=== PATIENT | female | born 1980 | race Caucasian/White ===

== ENCOUNTER → 2017-09-01 19:16 | Outpatient (CLI) | payer OTHER, SELFPAY ==
[2017-09-06 14:33] LABS: HPV APTIMA, High Risk Negative (Negative)
== END ==
PROVIDERS: Visit Provider Obstetrics & Gynecology
DX: Z12.4 Encounter for screening for malignant neoplasm of cervix (principal)
CPT/HCPCS: 88175; G0145

== ENCOUNTER → 2019-12-24 | Outpatient (CLI) | payer OTHER, SELFPAY ==
[2019-12-02 11:15] VITALS: BMI 21.2
--- NOTE | 2019-12-24 15:16 | BI_ITS ---
MAMMOGRAPHY - BILATERAL SCREENING REASON FOR EXAM: Female, 39 years old. Routine annual screening examination. PERTINENT HISTORY: Non-contributory. TECHNIQUE: Digital bilateral breast clarence (3D mammographic acquisition) in the CC and MLO projections. 2-D mediolateral oblique (MLO) and craniocaudad (CC) views of both breasts were obtained. CAD: Full Field Digital Mammography with Computer Added Detection was performed. COMPARISON: No comparison mammograms available at this time. If any prior films become available, an addendum to this report can be generated. FINDINGS: Breast Composition: The breasts are extremely dense, which lowers the sensitivity of mammography. There are no dominant masses or suspicious calcifications. No other significant abnormalities are identified. BI/SCREEN MAMM (CAD) W/CLARENCE BILAT IMPRESSION: Negative screening mammogram. Yearly followup mammogram recommended. (A) ASSESSMENT CATEGORY: BIRADS Category 1: Negative. A letter regarding these results will be sent to the patient by the facility within 30 days. Approximately 10% of breast cancers are not detected by mammography. A normal mammogram should not delay biopsy of a clinically suspicious abnormality. [id number] Electronically Signed: Jean-Claude Graham, at 8:28 EDT , Service support ,
== END | disposition home or self-care (01) ==
LOC: OPBI 15:16
PROVIDERS: PCP Family Medicine; Referring Provider Nurse Practitioner Women's Health; Visit Provider Nurse Practitioner Women's Health
DX: Z12.31 Encounter for screening mammogram for malignant neoplasm of breast (principal)
CPT/HCPCS: 77063; 77067

== ENCOUNTER → 2020-04-14 | Outpatient (CLI) | payer OTHER, SELFPAY ==
[2020-04-14 14:58] VITALS: BMI 20.9
== END | disposition home or self-care (01) ==
LOC: LABSPEC 16:49
PROVIDERS: PCP Family Medicine; Visit Provider Nurse Practitioner Women's Health
DX: R10.2 Pelvic and perineal pain (principal)
CPT/HCPCS: 87070; 87205

== ENCOUNTER → 2020-04-24 10:55 | Outpatient (CLI) | payer OTHER, SELFPAY ==
[2020-04-14 14:58] VITALS: BMI 20.9
--- NOTE | 2020-04-24 11:00 | US_ITS ---
STUDY: ULTRASOUND OF THE FEMALE PELVIS - COMPLETE REASON FOR EXAM: Female, 39 years old. PELVIC DISCOMFORT LMP: Unknown. TECHNIQUE: Transabdominal and Transvaginal TECHNICAL QUALITY: Adequate. COMPARISON: None. FINDINGS: The uterus is anteverted and is tilted to the right side of the pelvis. The uterus measures 7.3 cm x 4.4 cm x 3.7 cm. Normal uterine cervix. The endometrium measures 2.0 mm in thickness, and is hyperechoic. There is no demonstrated endometrial mass. There is no demonstrated myometrial mass. I.U.D. - The patient does not have an I.U.D. The right ovary is visualized. The right ovary measures 2.4 cm x 2 cm x 1.6 cm. There is no right ovarian cyst or ovarian mass. There is no visualized right adnexal mass or complex lesion. There is normal arterial and normal venous vascularity. The left ovary is visualized. The left ovary measures 1.9 cm x 1.7 cm x 1.5 cm. There is no left ovarian cyst or ovarian mass. There is no visualized left adnexal mass or complex lesion. There is normal arterial and normal venous vascularity. There is no fluid in the cul-de-sac. The pre void volume of the bladder was 111.5 ml. Polycystic ovary disease: No. US/Pelvic (Non ) IMPRESSION: Normal female pelvis. Electronically Signed: Jean-Claude Graham, at 13:17 EST , Service support ,
--- NOTE | 2020-04-24 11:00 | US_ITS ---
STUDY: ULTRASOUND OF THE FEMALE PELVIS - COMPLETE REASON FOR EXAM: Female, 39 years old. PELVIC DISCOMFORT LMP: Unknown. TECHNIQUE: Transabdominal and Transvaginal TECHNICAL QUALITY: Adequate. COMPARISON: None. FINDINGS: The uterus is anteverted and is tilted to the right side of the pelvis. The uterus measures 7.3 cm x 4.4 cm x 3.7 cm. Normal uterine cervix. The endometrium measures 2.0 mm in thickness, and is hyperechoic. There is no demonstrated endometrial mass. There is no demonstrated myometrial mass. I.U.D. - The patient does not have an I.U.D. The right ovary is visualized. The right ovary measures 2.4 cm x 2 cm x 1.6 cm. There is no right ovarian cyst or ovarian mass. There is no visualized right adnexal mass or complex lesion. There is normal arterial and normal venous vascularity. The left ovary is visualized. The left ovary measures 1.9 cm x 1.7 cm x 1.5 cm. There is no left ovarian cyst or ovarian mass. There is no visualized left adnexal mass or complex lesion. There is normal arterial and normal venous vascularity. There is no fluid in the cul-de-sac. The pre void volume of the bladder was 111.5 ml. Polycystic ovary disease: No. US/Transvaginal Non- IMPRESSION: Normal female pelvis. Electronically Signed: Jean-Claude Graham, at 13:17 EST , Service support ,
== END ==
PROVIDERS: PCP Family Medicine; Referring Provider Nurse Practitioner Women's Health; Visit Provider Nurse Practitioner Women's Health
DX: N94.9 Unspecified condition associated with female genital organs and menstrual cycle (principal)
CPT/HCPCS: 76830; 76856

== ENCOUNTER → 2020-05-13 13:30 | Outpatient (CLI) | payer OTHER, SELFPAY ==
[2020-04-14 14:58] VITALS: BMI 20.9
--- NOTE | 2020-05-13 13:33 | CT_ITS ---
STUDY: CT ABDOMEN AND PELVIS WITHOUT CONTRAST REASON FOR EXAM: Female, 39 years old. BLADDER PAIN, URINE FREQUENCY RADIATION DOSAGE (If Supplied By Facility): CTDIvol = ( 5.31 ) mGy, DLP = ( 232.67 ) mGycm TECHNIQUE: Transaxial images were obtained from the dome of the diaphragm to the symphysis pubis without oral contrast, and without intravenous contrast. Sagittal and coronal images were reconstructed. Individualized dose optimization techniques were used for this CT. COMPARISON: None. FINDINGS: The visualized lung bases are unremarkable. The visualized portions of the heart are within normal limits. Normal liver. Normal gallbladder and extrahepatic biliary system. Normal spleen. Normal pancreas. Normal bilateral adrenal glands. Normal right kidney. Normal left kidney. Normal visualized stomach. Normal small intestine. Normal colon. The appendix is visualized and appears normal. Normal abdominal aorta. Normal inferior vena cava. Normal retroperitoneum. Normal urinary bladder. Normal abdominal wall. Normal osseous structures. CT/Abdomen/Pelvis without Cont IMPRESSION: Normal unenhanced CT of the abdomen and pelvis. Electronically Signed: Jean-Claude Graham MD at 14:09 EST , Service support ,
== END ==
PROVIDERS: PCP Family Medicine; Referring Provider Urology; Visit Provider Urology
DX: M54.5 Low back pain (principal); M10.30 Gout due to renal impairment, unspecified site; R35.0 Frequency of micturition; R39.15 Urgency of urination
CPT/HCPCS: 74176

== ENCOUNTER 2020-05-18 09:00 | Outpatient (RCR) | payer OTHER, SELFPAY ==
[2020-04-14 14:58] VITALS: BMI 20.9
--- NOTE | 2020-05-18 09:00 | BH.SGPN.GN ---
This psychotherapy group was provided via telehealth using two-way, real-time interactive telecommunication technology between the patients and the provider. The interactive telecommunication technology included audio and video. The patient was offered telemedicine as an option for care delivery during the COVID-19 pandemic and consented to this option. Patient location: [place] Provider located at [facility] Behaviors/Verbalizations/Mental Status: []Client alert and oriented, casually dressed. Eye contact fair. Motor activity appropriate. Speech within normal limits. Affect flat, mood anxious. Thoughts linear, logical, no signs of hallucinations or delusions. Reviewed client?s symptom tracker, no risk or plan for suicide ideation as of 05/18/20. Client Response/Progress/Benefit: []Client responded well to session, engaged throughout and participated in group discussion. Client reported feeling ?anxious? as it was her first day of IOP program. Client stated her reasoning for joining group was due to feeling anxious of COVID 19 and feeling stressed due missing human interaction. Client stated her goal for IOP is to decrease her anxiety. Benefited and progress made as client was vulnerable and opened up to group for first day of treatment. Will continue IOP to prevent decompensation, decrease anxiety, and learn healthy coping skills. Narrative Note: []
--- NOTE | 2020-05-18 09:00 | BH.COMM ---
Communication Note - Communication with Client Communication Note: Intial paperwork completed via Zoom on . Completed [facility] with low risk.
--- NOTE | 2020-05-18 10:12 | BH.SGPN.GN ---
This psychotherapy group was provided via telehealth using two-way, real-time interactive telecommunication technology between the patients and the provider.?The interactive telecommunication technology included audio and video.? ?The patient was offered telemedicine as an option for care delivery during the COVID-19 pandemic and consented to this option. ?Patient location: [place] ?Provider located at [facility] Behaviors/Verbalizations/Mental Status: []Client alert and oriented, casually dressed. Eye contact good. Motor activity appropriate. Speech within normal limits. Affect congruent, mood anxious. Thoughts linear, logical, no signs of hallucinations or delusions. Client Response/Progress/Benefit: []Client engaged participant AEB client taking notes and listening attentively to peers. Group discussed the quotes as well as unhealthy coping skills. Group gave examples such as: alcohol, avoidance, taking responsibility for others, and minimizing. The group stated unhealthy coping skills tend to be easy, habitual, and temporary relief. Client was quiet during discussion, but frequently nodded at peers? comments. Client participated in the group activity and connected that a healthy foundation of coping skills is composed of healthy internal and external coping skills. Client seemed to benefit from increased awareness of the importance of increasing healthy coping skills and consequences of utilizing unhealthy coping skills. Client?s first day of IOP tx. Will continue to prevent decompensation and improve daily functioning. Narrative Note: []
--- NOTE | 2020-05-18 11:15 | BH.SGPN.GN ---
This psychotherapy group was provided via telehealth using two-way, real-time interactive telecommunication technology between the patients and the provider.?The interactive telecommunication technology included audio and video.? ?The patient was offered telemedicine as an option for care delivery during the COVID-19 pandemic and consented to this option. ?Patient location: [place] ?Provider located at [facility] Behaviors/Verbalizations/Mental Status: []Client alert and oriented, casual dress, hygiene tended to. Eye contact fair. Motor activity appropriate. Speech within normal limits. Affect constricted, mood dysthymic and anxious. Thoughts linear, logical, no signs of hallucinations or delusions. Client Response/Progress/Benefit: []Client engaged participant AEB client listening attentively to others and providing input at times. Client reported she is currently relying more on external supports. Client stated she has internal healthy coping skills but struggles to use the skills when in need. Group discussed the different categories of coping skills which included distraction, emotional release, grounding, self-love, and thought challenging. Client participated in creating a coping skills ?menu? from the five categories of coping skills. Client's coping skill menu included: cooking, meditation, progressive muscle relaxation, going outside, positive affirmations, and journaling. Pt's first day in IOP. Appeared to benefit from increasing repertoire of healthy coping skills. Will continue tx to continue increase healthy coping, improve daily functioning and prevent decompensation. Narrative Note: []
--- NOTE | 2020-05-18 13:31 | BH.COMM ---
Communication Note - Communication with Client Communication Note: Met with client on 05/18/20 via Zoom to ask about any questions or concerns per client's first day of IOP program. Client asked questions about weekly schedules, telehealth, individual therapy, and psychiatry. Will meet with Dr. Fam on 05/21/20 at 11:30 AM via Zoom. Client remained future-oriented and hopeful to decrease anxiety with the help of theIOP program.
--- NOTE | 2020-05-20 12:17 | BH.PSY.EVA_ITS ---
Psychiatric Evaluation - Initial Evaluation Initial Evaluation: Chief Complaint: [] I feel panic when I wake up and I cannot function. History of Present Illness: [] Patient is a 39-year-old female with a history of anxiety and PTSD and depression who was referred by her team psychologist to the [facility] behavioral health IOP program due to worsening anxiety and depression. Patient currently lives with her and 2 dogs and 1 cat and she has been for almost 5 years. 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 She was unable to work from May 03 to May 10 due to the severity of her symptoms. She was placed on BuSpar about a month ago and she says that her anxiety improved a little on the BuSpar and her mood improved a little but she still has significant anxiety and some depression. She feels her problems started when she had a miscarriage in 2013 which she feels was caused by having hyperemesis gravidarum and bladder symptoms and issues and she feels that being hospitalized at that time caused her spontaneous miscarriage. Since that time every time she gets any's bladder symptoms she worries that she has cancer. Her grandmother of cancer when the patient was 13 years of age and she was very close to her grandmother. She says that all of these symptoms and any health symptoms make her severely anxious and worried that she has cancer. She currently has had some of the work-up for her bladder issues done but she has including a CT and ultrasound and blood work. She has not scope of her bladder scheduled for next week. She was seen in the emergency room in April for bladder discomfort and the work-up began after that. The patient's mother stayed with her when she was off work due to her inability to function well at home at that time. The patient endorses feeling anxious all day and somewhat frustrated and down. She has no motivation. She endorses feeling hopeless at times but today she says she feels somewhat hopeful that she will get help. She is not enjoying much of anything she does. She has somewhat decreased appetite and her sleep is decreased to about 5 or 6 hours a night. Her energy level is low but she says her concentration at work is okay now. She feels guilty and mad herself due to her problems with anxiety. She denies any passive thoughts of . She denies suicidal or homicidal ideation or plan for suicide. She denies hallucinations, delusions or silvia. She is anxious all day long and is constantly worried about what is wrong with me and do I have cancer. She had panic attacks in the emergency room in April but has not had one since. She endorses feeling traumatized from her miscarriage in 2013 at 16 weeks gestation. The symptoms get triggered of severe anxiety and worry and flashbacks and avoidance whenever she has any bladder or gynecological symptoms. Current Psychiatric Medications: [] Zoloft 125 mg p.o. daily (increased from 100 mg yesterday; on Zoloft for 5 years total); BuSpar 5 mg p.o. 3 times daily (x1 month); Vistaril but she says it stopped helping her sleep so she stopped it. Past Psychiatric History: [] No psychiatric admissions. No suicide attempts ever. She currently has a counselor she sees about once every week or 2 and is seen her for 7 months and this has been helpful. Her first counseling was at age 16 for depression and it was not very helpful. Her first psych medication she took at age 16 for depression. She did a psych IOP in [place] and found it to be helpful in the past. Her past medications include Celexa, Zoloft and Wellbutrin. Celexa and Zoloft were helpful but Wellbutrin did not help her. Substance Use History: [] Non-smoker. No marijuana and no drug use. No alcohol use. No caffeine use. No rehab ever. Allergies: [] Codeine Medications: [] Protonix and psych meds as dictated above. Also on oral contraceptive pills. Past Medical History: [] She has a history of GERD, endometriosis, ovarian cysts and hyperemesis gravidarum in her first . She is a 1 para 0 AB 1 with a history of 1 spontaneous miscarriage around 14 weeks gestation. She has a history of bladder discomfort which is being worked up currently. Family Psychiatric History: [] Mother is 69 years old and healthy. Father is 74 years old and has a history of prostate cancer. Her mother, father and brother all have depression and anxiety. No completed suicides in the family. Mother and father are both alcoholics. Personal/Social History: [] She was born and raised in [place] and describes her childhood as very happy. Her parents were loving and there was no physical, verbal or sexual abuse. She has 1 brother 2 years older than her and she is close to her brother. She did well in school until high school and then she went to boarding school for high school and her grades were not good as she was socializing. 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 She at age 34 and has been over 4 years. She describes her marriage as good. She feels her is a little stressed because he does not help her. 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 Since the first marriage for both of them and there is no abuse in the marriage. Legal History: [] None. No DUIs. 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 Review of Systems: [] Bladder discomfort which is currently being worked up. Otherwise as noted in present illness. Vital Signs: [] Will be reviewed in nurses notes. Mental Status Examination: [] The patient is seen by telehealth and appears normal for stated age and casually dressed and groomed with good hygiene. She is cooperative during the interview and has no psychomotor agitation or retardation. Eye contact is good and speech is normal. Affect is constricted. Thought process is goal-directed and organized. Thought content: No evidence of passive thoughts of , suicidal ideation, homicidal ideation, hallucinations or delusions. There is evidence of worry that she has cancer due to her current bladder discomfort. Reality testing is intact. Judgment is intact. Insight is fair to good. Impulsivity is low. Diagnoses: [] Billingsley I: [] Illness anxiety disorder, care seeking type (F 45.21); major depressive disorder, recurrent, moderate; generalized anxiety disorder; PTSD Billingsley II: [] Deferred Billingsley III: [] Bladder discomfort Billingsley IV: [] Primary support, health and work issues Plan: [] Patient will start the IOP program in behavioral health at [facility] as the structure, support, education, individual and group therapy will hopefully prevent worsening of the patient's symptoms. The risk, options, possible side effects and complications of the medications were discussed with the patient and she understands and accepts these. She felt safe during the interview and if it anytime she does not feel safe she will let us know or go to the emergency room. No medication changes were made today as the Zoloft was increased yesterday. At some point in the future the BuSpar could be increased since that it is at a relatively low dose and the patient feels it did help her. The patient will continue to follow-up with her outpatient psychiatric and medical providers. She will see her team psychologist in 2 weeks and I will see the patient in 3 weeks for follow-up.
--- NOTE | 2020-05-20 12:30 | BH.DR.ITP ---
Initial Treatment Plan - Patient Information Visit Information: ADMISSION DATE: EXPECTED LOS: 4-6 weeks - Problems/Symptoms Problem #1:: Anxiety Symptom:: Worry, rumination, panic attack, avoidance, reexperiencing Problem #2:: Depression Symptom:: Sadness, hopelessness at times, anhedonia, lack of motivation, biological disruption of sleep.
--- NOTE | 2020-05-22 09:05 | BH.SGPN.GN ---
Behaviors/Verbalizations/Mental Status: [] Eye contact is good. Motor activity is appropriate. Appearance is neat. Speech is Appropriate. Mood is anxious. Affect is congruent. Thoughts are linear and logical. No evidence of psychosis. Reviewed daily check in sheet and no suicidal thoughts. Client Response/Progress/Benefit: [] Pt was an active participant in group discussion. Emotions for today is hopeful. Pt states I felt like myself again yesterday. Reports decreased anxiety and increased focus. Utilizing journaling which was helpful. Overall reports good evening yesterday. Check-in was brief however positive. Progress noted per pt report. Benefited from group support and encouragement. Will continue in IOP to prevent decompensation and improve functioning. Narrative Note: [] This psychotherapy group was provided via telehealth using two-way, real-time interactive telecommunication technology between the patients and the provider.?The interactive telecommunication technology included audio and video.? ?The patient was offered telemedicine as an option for care delivery during the COVID-19 pandemic and consented to this option. ?Patient location: [place] ?Provider located at [facility]
--- NOTE | 2020-05-22 10:15 | BH.SGPN.GN ---
Behaviors/Verbalizations/Mental Status: [] Eye contact is good. Motor activity is appropriate. Appearance is casual. Speech is Appropriate. Mood is euthymic. Affect is full. Thoughts are linear and logical. No evidence of psychosis. Client Response/Progress/Benefit: [] Pt was an active participant in group discussions and activities. Attentive. Worked with peers to define what self-care is and it's benefits to mental health. Self-care was identified as activities that we do to; maintain/enhance our well-being, reduce stress, increase communication, improve view of self, decrease burnout, and to have fun. Group discussed the obstacles to completing self-care activities and the myths surrounding them which included; self-care is selfish, I'm too busy for them, self-care is just having fun, I don't deserve to do self-care, self-care has to be planned, self-care should only be done when I have nothing else to do. Group broke into smaller groups and worked together to bust these myths. Pt benefited due to increased awareness of importance of self-care in mental health. Will continue in IOP to prevent decompensation, increase healthy coping, and improve functioning. Narrative Note: [] This psychotherapy group was provided via telehealth using two-way, real-time interactive telecommunication technology between the patients and the provider.?The interactive telecommunication technology included audio and video.? ?The patient was offered telemedicine as an option for care delivery during the COVID-19 pandemic and consented to this option. ?Patient location: [place] ?Provider located at [facility]
--- NOTE | 2020-05-22 11:15 | BH.SGPN.GN ---
This psychotherapy group was provided via telehealth using two-way, real-time interactive telecommunication technology between the patients and the provider.?The interactive telecommunication technology included audio and video.? ?The patient was offered telemedicine as an option for care delivery during the COVID-19 pandemic and consented to this option. ?Patient location: [place] ?Provider located at [facility] Behaviors/Verbalizations/Mental Status: []Client alert and oriented, neatly dressed and groomed. Eye contact good. Motor activity appropriate. Speech within normal limits. Affect congruent, mood euthymic. Thoughts linear, logical, no signs of hallucinations or delusions. Client Response/Progress/Benefit: []Client active participant AEB client providing input during discussions and listened attentively to peers. Participated in group discussion on the various areas of self-care and types of self-care activities for each area. Client completed worksheet in which client identified current self-care practices and what self-care activities client wants to start using. Client reports belief professional self-care in a current strength, but client would like to improve emotional self-care. Client states currently struggling with expressing feelings and has no hobbies. Client plans to explore hobbies she might enjoy this weekend and client was receptive to ideas from group. Client?s first week of IOP tx. Will continue IOP tx to prevent decompensation, reduce health anxiety, and improve daily functioning. Narrative Note: []
--- NOTE | 2020-05-22 13:23 | BH.COMM ---
Communication Note - Communication with Client Communication Note: Therapist introduced self as client's individual counselor in IOP. Therapist gathered client's tx goals and began building rapport. Client meets with her outpatient therapist today, so IOP therapist will see client for individual session next week.
--- NOTE | 2020-05-22 13:53 | BH.PSA ---
Source of Information - Presenting Problems/Circumstances Problems, Referral Source, Mental Status, Client: Client is a 39-year-old female with a history of TANYA and PTSD. client was referred to [facility] by her outpatient computer repair instructor due to significant anxiety which was interfering with client's daily functioning. At admission, client reported being in complete panic from the moment she wakes up. Client also reports feeling paralyzed by anxiety and fear which resulted in client not going to work for a week. Client has been unable to function at her baseline or complete daily responsibilities due to mental health decompensation. In 2013 client experienced significant complications while which traumatized client and caused medical anxiety. Client recently had bladder pain that triggered her medical anxiety and trauma. Client endorses ruminations that she has cancer, panic attacks, googling about her symptoms, and racing thoughts. Client also endorses anhedonia, isolative behaviors, hopelessness, decreased appetite, decreased sleep, and lack of motivation. Client's symptoms are currently impacted her social, occupational, and familial functioning. Psychiatric Presentation - Psych Issues & Need for Admission Psychiatric Issues:: Illness anxiety disorder, care seeking type (F 45.21); major depressive disorder, recurrent, moderate; generalized anxiety disorder; PTSD Past Psychiatric History - Treatment Hx Treatment History: Client denies any psychiatric admissions and denies any suicide attempts. Client currently sees a counselor at [facility] about once a week for the past seven months and client finds this helpful. Client reports she started counseling at age 16 for depression, but it was not helpful at that time. Client also took her first psych medications at age 16. Client did a mental health IOP in [place] in the past and found it helpful. Client?s previous medication trials included: Zoloft, Celexa, and Wellbutrin. First hospitalization:: n/a Most recent hospitalization:: n/a ECT Therapy:: No Age of first mental health symptoms: Client first experienced mental health symptoms at age 16. Describe (age, circumstance, etc) any past hospitalizations: Denies any hospitalizations. Current providers for mental health treatment (counselor, psychiatrist, case management associate, etc.): Echo Rodriguez at [place] [address] for medication management and Dionna Choudhary at [facility] for individual therapy. Development & Family of Origin - Childhood Significant Childhood Events: Client reports her childhood was very happy however, client shared she has struggled with perfectionism since she was a child. Client reports issues with performance anxiety as well since childhood. - Family Who currently lives in your home?: Client lives with her and their two dogs. Describe family composition:: Client was born and raised in [place] and describes her childhood as very happy. Client describes parents as loving and there was no physical, verbal or sexual abuse. Client has one brother who is two years older than her and she is close to her brother. Client reports being close to her parents as well. Client has been for four years and describes the relationship as good. Client was in the past and lost the baby. This was a traumatic experience for client and the couple do not have any children. - Family History Family History: Family History (Last Reviewed 04/14/20 @ 15:05 by Julisa Mantilla) Father Prostate cancer Mother Hypertension Grandmother Cancer Grandfather Diabetes CVA (cerebral vascular accident) Emphysema lung Family Hx of Psychiatric or AOD Problems: Client's mother, father and brother all have depression and anxiety. No completed suicides in the family. Mother and father are both alcoholics. Ethnicity - Culture Do you identify yourself with any particular cultural, ethnic background, or community?: No - Sexuality Sexual Orientation: Heterosexual Mental Status - Memory Recent Memory: Good Remote Memory: Good - Concentration Concentration: Fair - Eye Contact Eye Contact: Good - Speech Speech: Soft - Thought Process Thought Process: Obsessions, Ruminations Insight: Fair Judgment: Fair Behavior: Normal - Orientation Orientation: Time, Person, Place, Situation - Appearance Appearance: Appropriate - Mood Mood: Anxious - Affect Affect: Alert Suicide Assessment - Suicidal Ideation Have you ever felt like hurting yourself?: No Suicidal Intentional Rating Scale (SIRS): No suicidal thoughts (past or present) Physician Notification: If Active suicidal thoughts/Will not contract for safety is checked, contact physician and document in the Physician Notification section below. Violent Behavior/Abuse History - Homicidal Ideation Do you have any homicidal thoughts? If so, explain:: No Is there a known potential victim? If yes, who:: No - Abuse Have you ever been abused?: No - Life Events Are there any other significant life events?: Hardships Describe significant life events: Client feels her problems started when she had a miscarriage in 2013 which she feels was caused by having hyperemesis gravidarum and bladder symptoms and issues. Client feels that being hospitalized at that time caused her to have a spontaneous miscarriage. Since then every time client gets any bladder symptoms she worries that she has cancer. Client?s grandmother of cancer when the patient was 13 years of age and she was very close to her grandmother. Additionally, client reports exacerbation of anxiety and depression since COVID-19 pandemic started. - Safety Do you ever feel threatened in your home? If yes, describe:: No Adult Social History - Age 17 to Present Describe your current support system:: Client reports her , family, and friends are all supportive. Substance Use - Substance Substance Use Type: None Leisure/Social Activities - Interests What do you enjoy or might be interested in learning about?: Client enjoys nature, spending time with her dogs, TV, and she used to enjoy reading. 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 Do you have any learning disabilities?: No - Occupation List any current or past employment:: Client works doing [employer] for the [employer] in the [employer] department and has done this job for about 5 years and loves her work. Service - Service Have you ever been in the ?: No Legal History - Records Have you had any past legal charges?: No Do you have any current legal charges?: No Have you ever been incarcerated? If yes, describe:: No - Court Orders Have you had any past court orders for psychiatric treatment?: No Do you have a present court order for psychiatric treatment?: No Problem Checklist - Current Problem Areas Problem List: Nutritional/Eating pattern changes, Pain management, Depressed mood/sad, Anxiety, Traumatic stress, Inattention, Sleep problems, Pertinent health issues - history of GERD, endometriosis, ovarian cysts and hyperemesis gravidarum in her first . She is a 1 para 0 AB 1 with a history of 1 spontaneous miscarriage around 14 weeks gestation. She has a history of bladder discomfort which is being worked up currently., Additional psychosocial stressors - COVID-19 pandemic has exacerbated anxiety and depression due to isolation and lack of socialization. Discharge Planning Needs - Anticipated Follow-Up Mental Health Center (Name/Phone Number):: [phone] Private Therapist/Psychiatrist:: Echo Wurstle (medication management) and Dionna Choudhary (counselor) Community Agency Contacts: n/a Assignment Officer Name/Phone Number: n/a Cardiology Clinical Nurse Specialist's Assessment - Client's Needs What are the client's strengths?: Client is kind, intelligent, and receptive to learning how to manage her symptoms. Client is established with outpatient services at [facility] in [place] and [place] [address] in [place]. Client has support from her family and . Diagnoses - Diagnoses Diagnosis #1:: Illness anxiety disorder, care seeking type Diagnosis #2:: major depressive disorder, recurrent, moderate Diagnosis #3:: TANYA Diagnosis #4:: PTSD Interpretive Summary - Interpretive Summary Interpretive Summary: Client is a 39-year-old female with a history of TANYA and PTSD. client was referred to [facility] by her outpatient computer repair instructor due to significant anxiety which was interfering with client's daily functioning. At admission, client reported being in complete panic from the moment she wakes up. Client also reports feeling paralyzed by anxiety and fear which resulted in client not going to work for a week. Client has been unable to function at her baseline or complete daily responsibilities due to mental health decompensation. In 2013 client experienced significant complications while which traumatized client and caused medical anxiety. Client recently had bladder pain that triggered her medical anxiety and trauma. Client endorses ruminations that she has cancer, panic attacks, googling about her symptoms, and racing thoughts. Client also endorses anhedonia, isolative behaviors, hopelessness, decreased appetite, decreased sleep, and lack of motivation. Client has history of depression starting at age 16. Client denies any history of hospitalization or suicide attempts. Strong family history of depression, anxiety, and alcoholism. Client denies any history of sexual, physical, or verbal abuse. Client also denies any substance use. Client's symptoms are currently impacted her social, occupational, and familial functioning. Treatment Plan Recommendations - Recommendations Guidelines: Special needs identified to be included in the development of an individualized treatment plan regarding past psychiatric history and treatment, developmental events, family relationships/events/culture, past and/or current educational, occupational, social, and residential experience, and legal status. Recommendations:: Client will start the IOP program in behavioral health at [facility] as the structure, support, education, individual and group therapy will hopefully prevent worsening of client?s symptoms. The risk, options, possible side effects and complications of the medications were discussed between client and IOP psychiatrist and client accepts and understands these. She felt safe during the interview and if it anytime she does not feel safe she will let us know or go to the emergency room. No medication changes were made today as the Zoloft was increased yesterday. Client will continue to follow-up with her outpatient psychiatric and medical providers. Client was encouraged by her outpatient therapist to explore EMDR to help with her PTSD from her traumatic .
--- NOTE | 2020-05-22 13:54 | BH.MTP ---
Master Treatment Plan - Patient Information Program Physician:: Dr. Dionna Fam Primary Therapist:: Sylvie PARISH - Psychiatric Diagnoses Psychiatric Diagnoses:: Illness anxiety disorder, care seeking type (F 45.21); major depressive disorder, recurrent, moderate; generalized anxiety disorder; PTSD Diagnosis Code(s):: F 45.21; F33.1 - Estimated LOS Estimated LOS (in weeks):: 6 Problem/Goal #1 - Problem/Goal #1 Stated Goal:: client will reduce overall frequency, intensity, and duration of anxiety and intrusive health thoughts so that daily functioning is not impaired. Description of Barriers: Client endorses safety behaviors that could reinforce anxiety (such as googling symptoms), reports avoidance and isolative behaviors, and is currently struggling to self-motivate. Client also has loss of appetite, has not been finding enjoyment in things, and has physical pain. Functional Impact: Client is a 39-year-old female with a history of TAYNA and PTSD. client was referred to [facility] by her outpatient furnace room supervisor due to significant anxiety which was interfering with client's daily functioning. At admission, client reported being in complete panic from the moment she wakes up. Client also reports feeling paralyzed by anxiety and fear which resulted in client not going to work for a week. Client has been unable to function at her baseline or complete daily responsibilities due to mental health decompensation. In 2013 client experienced significant complications while which traumatized client and caused medical anxiety. Client recently had bladder pain that triggered her medical anxiety and trauma. Client endorses ruminations that she has cancer, panic attacks, googling about her symptoms, and racing thoughts. Client also endorses anhedonia, isolative behaviors, hopelessness, decreased appetite, decreased sleep, and lack of motivation. Client's symptoms are currently impacted her social, occupational, and familial functioning. Goal Relevant Strengths/Supports: Client is kind, intelligent, and receptive to learning how to manage her symptoms. Client is established with outpatient services at [facility] in [place] and [place] [address] in [place]. Client has support from her family and . - Objectives Objective #1 Stated Objective: Client will identify 2-3 anxiety triggers and 2 coping skills to use when feeling anxious to manage anxiety as shown by reducing DSM-5 scores for anxiety. Interventions: Through group and individual sessions, client will gain awareness of her anxiety triggers and learn numerous techniques to manage anxiety symptoms. Therapist will mindfulness and other calming techniques to manage symptoms and increase distress tolerance skills. Discharge Criteria: Client will have met this goal if client can prevent decompensation as evidenced by stability in DSM-5 scores and when she can identify at least 2 triggers and 2 ways to cope with anxiety. Target Date: 06/29/20 Review Date: 06/15/20 Status: open Objective #2 Stated Objective: Client will identify 2-3 intrusive/ruminating thoughts and learn 2-3 strategies to overcome, replace, or reduce the value of those thoughts. Interventions: Therapist will help client increase awareness of cognitive distortions, false comfort, and myths about intrusive thoughts. Therapist will encourage client to focus on stressors in her control and teach client distress tolerance techniques. Therapist will utilize distractions, mindfulness, and CBT-based strategies to help client learn how to more effectively manage and cope with her intrusive, health-related thoughts. Therapist will use a workbook to give client homework and exercises to practice. Discharge Criteria: Client will have met this goal when can report least 2 ways to cope with intrusive thoughts that exacerbate anxiety. Target Date: 06/29/20 Review Date: 06/15/20 Status: open Problem/Goal #2 - Problem/Goal #2 Stated Goal:: Client will reduce depressive symptoms, lack of motivation, and sadness due to major depressive disorder. Description of Barriers: Client endorses safety behaviors that could reinforce anxiety (such as googling symptoms), reports avoidance and isolative behaviors, and is currently struggling to self-motivate. Client also has loss of appetite, has not been finding enjoyment in things, and has physical pain. Functional Impact: Client is a 39-year-old female with a history of TANYA and PTSD. client was referred to [facility] by her outpatient furnace room supervisor due to significant anxiety which was interfering with client's daily functioning. At admission, client reported being in complete panic from the moment she wakes up. Client also reports feeling paralyzed by anxiety and fear which resulted in client not going to work for a week. Client has been unable to function at her baseline or complete daily responsibilities due to mental health decompensation. In 2013 client experienced significant complications while which traumatized client and caused medical anxiety. Client recently had bladder pain that triggered her medical anxiety and trauma. Client endorses ruminations that she has cancer, panic attacks, googling about her symptoms, and racing thoughts. Client also endorses anhedonia, isolative behaviors, hopelessness, decreased appetite, decreased sleep, and lack of motivation. Client's symptoms are currently impacted her social, occupational, and familial functioning. Goal Relevant Strengths/Supports: Client is kind, intelligent, and receptive to learning how to manage her symptoms. Client is established with outpatient services at [facility] in [place] and [place] [address] in [place]. Client has support from her family and . - Objectives Objective #1 Stated Objective: Client will learn and utilize 2-3 healthy coping strategies to better manage depressive symptoms and reduce DSM-5 symptoms for depression. Interventions: Through group and individual sessions, therapist will help client identify triggers and warning signs of depression and emotional dysregulation including emotional, physical, and behavioral changes. Therapist will teach client various coping skills to manage her symptoms. Therapist will use cognitive restructuring techniques and help client gain awareness of negative thoughts that reinforce depressive cycles. Therapist will help client incorporate mindfulness and emotional regulation skills when dealing with difficult situations. Discharge Criteria: Client will have met this goal when she can report learning and using at least 2 coping skills to manage depressive symptoms and her DSM-5 scores for depression have decreased. Target Date: 06/29/20 Review Date: 06/15/20 Status: open Objective #2 Stated Objective: Client will reduce anhedonia and improve mood through setting and accomplishing 2-3 behavioral activation goals a week. Interventions: Through group and individual sessions, client will learn how to set small SMART goals to promote mood stability. Therapist will provide education on maintenance cycles for depression and help client learn how to break unhealthy maintenance cycles. Discharge Criteria: Client will have accomplished this goal when can report accomplishing at least two behavioral activation goal a week. Target Date: 06/29/20 Review Date: 06/15/20 Status: open
--- NOTE | 2020-05-27 09:05 | BH.SGPN.GN ---
Behaviors/Verbalizations/Mental Status: [] Eye contact is good. Motor activity is appropriate. Appearance is casual. Speech is Appropriate. Mood is euthymic. Affect is full. Thoughts are linear and logical. No evidence of psychosis. Reviewed daily check in sheet and no reports of suicidal ideations or intent. Client Response/Progress/Benefit: [] Pt was an active participant in group discussion on the effects of caffeine on anxiety. Attentive. Provided appropriate feedback. Emotion for today is hopeful. Pt shared that she had surgery yesterday and overall was proud of herself for managing her anxiety pre and post. Typically, she has extensive panic attacks however reports that she did not have any. Has been utilizing the CALM manasa and feels that it has been beneficial. Optimistic about the surgery stating that ?gave her some answers? regarding her medical issues. Progress noted per pt report. Benefited from support, encouragement, and feedback from peers. Will continue in IOP to maintain gains, increase healthy coping, and decrease ruminations. Narrative Note: [] This psychotherapy group was provided via telehealth using two-way, real-time interactive telecommunication technology between the patients and the provider.?The interactive telecommunication technology included audio and video.? ?The patient was offered telemedicine as an option for care delivery during the COVID-19 pandemic and consented to this option. ?Patient location: [place] ?Provider located at [facility]
--- NOTE | 2020-05-27 10:00 | BH.SGPN.GN ---
This psychotherapy group was provided via telehealth using two-way, real-time interactive telecommunication technology between the patients and the provider.?The interactive telecommunication technology included audio and video.? ?The patient was offered telemedicine as an option for care delivery during the COVID-19 pandemic and consented to this option. ?Patient location: [place] ?Provider located at [facility] Behaviors/Verbalizations/Mental Status: []Client alert and oriented, casually dressed and groomed. Eye contact good. Motor activity appropriate. Speech within normal limits. Affect constricted, mood dysthymic. Thoughts linear, logical, no signs of hallucinations or delusions. Client Response/Progress/Benefit: []Client engaged throughout session AEB providing input when prompted. Appeared to connect with discussion on crisis and how unhealthy coping could result in a personal crisis. Group reflected on the importance of having awareness of personal warning signs in order to prevent reaching crisis point. Group identified potential warning signs for crisis and client completed the personal warning signs worksheet. Client identified personal crisis warning signs to include: increased anxiety, lack of self-care, and increased irritability. Client benefited from increasing awareness of what leads to crisis and personal warning signs. Progress noted in client's consistent attendance. Will continue IOP tx to prevent decompensation, reduce anxious and intrusive thinking, and improve self-care practices. Narrative Note: []
--- NOTE | 2020-05-27 15:28 | BH.MDN_ITS ---
Multi-Disciplinary Note - Note 45-min Individual Time Started:: 11:13 Date: 05/27/20 Purpose of session/treatment goals addressed:: The purpose of this session was to work on goal #1 objective #2 and goal #2 objective #2 of client's tx plan. Symptoms/Behavior:: This counseling session was provided via telehealth using two-way, real-time interactive telecommunication technology between the patient and the clinician. The interactive telecommunication technology included audio and video. The patient was offered telehealth as an option for care delivery during the COVID-19 pandemic and consented to this option. Patient location: [place]. Provider located at [facility] Eye Contact:: Good Motor Activity:: Appropriate Appearance:: Casual Speech:: Appropriate Mood:: Anxious, Dysthymic Affect:: Congruent Thoughts:: Linear, Logical, No evidence of hallucinations/delusions noted Staff Interventions:: Therapist provided psychoeducation on maintenance cycles for depression and taught client how to break unhealthy maintenance cycles. Therapist used the Overcoming Intrusive Thoughts book to help client learn more about myths about anxious thoughts. Therapist gave client homework from the book and encouraged client to work on her goal of increasing self-care this week. Client Response:: Client responded well to session, open to meeting with therapist. Client reports since having surgery, her anxiety has decreased because client now has some answers. Client reported she continues to struggle with lack of motivation, lack of self-care, sleep issues, and using distractions. Client connected with maintenance cycles and safety behaviors. Client identified her safety behaviors to be googling medical symptoms, sleeping, and seeking reassurance from medical receptionist medical assistant. Client stated her googling has decreased which is progress. Client read over the myths about thoughts and connected with several. Client reported she has worried she is crazy because of her anxious thoughts, but client was able to challenge this. Client receptive to setting small goals to elicit uplifting emotions. Discussed the benefits of creating a daily self-care routine. Client's daily routine in cluded showering, doing her makeup, and eating one full meal. Client also set a goal to listen to a podcast, practice yoga, and take her dogs for a walk if client is having anxious thoughts. Risks/Concerns:: Client denies any suicidal ideations, plan, or intent as of 05/27/20. Progress Toward Goals/Plan:: Client appears to be responding well to tx AEB client's consistent attendance and engagement. Client reports a reduction in anxiety since her surgery which is progress. Client continues to endorse a depressed mood, ruminations and intrusive thoughts, lack of motivation, lack of energy, poor appetite, and issues with sleep. Client is still not functioning at her baseline. Client will continue IOP tx to prevent decompensation, improve daily functioning, and increase self-care. Time Stopped:: 11:58
--- NOTE | 2020-05-29 09:00 | BH.SGPN.GN ---
This psychotherapy group was provided via telehealth using two-way, real-time interactive telecommunication technology between the patients and the provider. The interactive telecommunication technology included audio and video. The patient was offered telemedicine as an option for care delivery during the COVID-19 pandemic and consented to this option. Patient location: [place] Provider located at [facility] Behaviors/Verbalizations/Mental Status: []Client alert and oriented, casually dressed. Eye contact good. Motor activity appropriate. Speech within normal limits. Affect congruent, mood euthymic and anxious. Thoughts linear, logical, no signs of hallucinations or delusions. Reviewed client?s symptom tracker, no risk or plan for suicide ideation, plan, or intent as of 05/29/20. Client Response/Progress/Benefit: []Client responded well to session, engaged throughout and participated in group discussion. Client reported feeling ?grateful? this morning after sharing how much her has been supportive throughout her treatment. Reported working on her goal of increasing self-care as client brushed her hair this morning, has increased sleep quality, and ate a normal meal with her last night. Client reports using opposite action at work as she calls instead of texts co-workers to increase her laughter and overall mood. Benefited from group as other group members gave positive feedback and progress noted as client appears to be motivated AEB accomplishing her goals. Will continue IOP to continue the use of healthy coping skills, decrease anxiety symptoms, and improve daily functioning. Narrative Note: []
--- NOTE | 2020-05-29 10:05 | BH.SGPN.GN ---
This psychotherapy group was provided via telehealth using two-way, real-time interactive telecommunication technology between the patients and the provider.?The interactive telecommunication technology included audio and video.? The patient was offered telemedicine as an option for care delivery during the COVID-19 pandemic and consented to this option. Patient location: [place] Provider located at [facility] Behaviors/Verbalizations/Mental Status: []Client alert and oriented, casually dressed and groomed. Eye contact fair. Motor activity appropriate. Speech within normal limits. Affect constricted, mood anxious. Thoughts linear, logical, no signs of hallucinations or delusions. Client Response/Progress/Benefit: []Client mostly passive participant AEB limited contributions during discussion, however engaged during activity and attentively listened to peers. Group reported even though change can be scary, change can be positive. Discussed how change can lead to improved mental health and relationships. Client worked with the group to identify barriers to making change, which included: fear of failure, uncomfortable emotions, and putting others first. Client participated in the activity where they identified and discussed the emotions related to change. Benefited from increased awareness and understanding of emotions, benefits, and barriers related to change. Will continue IOP tx as client can benefit from reducing anxious symptoms, increasing healthy coping skills, and preventing decompensation.
--- NOTE | 2020-05-29 11:05 | BH.SGPN.GN ---
This psychotherapy group was provided via telehealth using two-way, real-time interactive telecommunication technology between the patients and the provider.?The interactive telecommunication technology included audio and video.? ?The patient was offered telemedicine as an option for care delivery during the COVID-19 pandemic and consented to this option. ?Patient location: [place] ?Provider located at [facility] Behaviors/Verbalizations/Mental Status: []Client alert and oriented, casually dressed and groomed. Eye contact good. Motor activity appropriate. Speech within normal limits. Affect constricted, mood anxious. Thoughts linear, logical, no signs of hallucinations or delusions. Client Response/Progress/Benefit: []Client responded well to session AEB taking notes and actively participating. Client contributed during psychoeducation on the change process and different emotions in each stage of change. Client also contributed during the activity by providing encouragement. Client identified a change client would like to make to improve mental health which was to ?practice meditation once a day.? Client reports belief she is currently in the preparation stage, as client has begun this change, but can be more consistent. Client contributed during group discussion on using a decisional balance tool to promote change. Appeared to benefit from identifying what stage of change client is in and creating a small goal. Will continue IOP tx to promote use of healthy coping skills, reduce anxiety, and improve daily functioning. Narrative Note: []
--- NOTE | 2020-06-03 10:10 | BH.SGPN.GN ---
This psychotherapy group was provided via telehealth using two-way, real-time interactive telecommunication technology between the patients and the provider.?The interactive telecommunication technology included audio and video.? ?The patient was offered telemedicine as an option for care delivery during the COVID-19 pandemic and consented to this option. ?Patient location: [place] ?Provider located at [facility] Behaviors/Verbalizations/Mental Status: []Client alert and oriented, casually dressed and groomed. Eye contact good. Motor activity appropriate. Speech within normal limits. Affect constricted, mood anxious. Thoughts linear, logical, no signs of hallucinations or delusions. Client Response/Progress/Benefit: []Client was an engaged participant AEB taking notes and contributing to discussion. Connected with group topic of perspective and the impacts of one?s perspective on mental health. Client worked with the group to identify how a negative perspective can impact mental health which included: self-fulfilling prophecy, keeping people stuck in toxic relationships, and overgeneralizing. Client reported ?we think that everything is negative, but if we try to think of the positives, we can find them.? Client appeared to benefit from increasing understanding of mental health benefits of a positive perspective and potential consequences to progress when perspective is negative. Client reports struggling with managing her health anxiety thoughts this week, but continues to practice mindfulness and distractions. Client will continue IOP tx to prevent decompensation, improve daily functioning, and improve ability to manage anxious thoughts. Narrative Note: []
--- NOTE | 2020-06-03 11:10 | BH.SGPN.GN ---
This psychotherapy group was provided via telehealth using two-way, real-time interactive telecommunication technology between the patients and the provider.?The interactive telecommunication technology included audio and video.? ?The patient was offered telemedicine as an option for care delivery during the COVID-19 pandemic and consented to this option. ?Patient location: [place] ?Provider located at [facility] Behaviors/Verbalizations/Mental Status: []Eye contact is good. Alert and oriented. Motor activity is appropriate. Appearance is casual. grooming is appropriate. Speech is Appropriate. Mood is anxious. Affect is constricted. Thoughts are linear and logical. No evidence of psychosis or hallucinations. Client Response/Progress/Benefit: []Pt engaged participant AEB pt providing input throughout session, listening attentively to peers and completing strengths exploration handout. Pt shared some of the strengths she identified were humor, open-mindedness, and kindness. Pt reported she found it helpful to take time to identify the strong qualities she does possess versus always looking at her shortcomings. Pt stated she is currently using the strength of open-mindedness to help her with mental health recovery. Pt reported she is open-minded to trying new strategies of coping and managing stressors. Pt seemed to benefit from increased awareness of personal strengths and improved understanding how perspective can impact view of self. Pt is to continue IOP to decreasing anxious thoughts, increase daily functioning and prevent decompensation. Narrative Note: []
--- NOTE | 2020-06-03 14:25 | BH.MDN ---
Multi-Disciplinary Note - Note 30-min Individual Time Started:: 09:30 Date: 06/03/20 Purpose of session/treatment goals addressed:: The purpose of this session was to work on goal #1 objective #2 and goal #2 objective #2 of client's tx plan. Symptoms/Behavior:: This counseling session was provided via telehealth using two-way, real-time interactive telecommunication technology between the patient and the clinician. The interactive telecommunication technology included audio and video. The patient was offered telehealth as an option for care delivery during the COVID-19 pandemic and consented to this option. Patient location: [place]. Provider located at [facility] Eye Contact:: Good Motor Activity:: Appropriate Appearance:: Disheveled Speech:: Soft Mood:: Anxious, Dysthymic Affect:: Constricted Thoughts:: Linear, Logical, No evidence of hallucinations/delusions noted Staff Interventions:: Therapist reviewed maintenance cycles for depression and anxiety and discussed behavioral and cognitive skills to break unhealthy maintenance cycles. Therapist used the Overcoming Intrusive Thoughts book to help client learn more about how manage intrusive/anxious thoughts in the moment. Therapist gave client homework to practice the skill from session and to do yoga today. Client Response:: Client responded well to session, open to meeting with therapist. Client reports feeling ?low? since her appointment on Monday with her urologist. Client shared the appointment left client feeling invalidated and not taken seriously. Client reports worsening depression and obsessions about her health since then with little relief. Client stated she was able to find relief while watching a funny show with her mother and reading. Client receptive to creating small goals today and client plans to do yoga with her mother. Client and therapist reviewed a thought-based skill from the Overcoming Intrusive Thought workbook. The skill was Recognize, Just thoughts, Accept and allow, Float and feel, let Time pass, and Proceed. Client reports she has been working on labeling her anxious thoughts, but she struggles with accepting them without giving them value or seeking reassurance. Client willing to practice this skill and write out her experience. Client also encouraged to practice grounding and self-care based skills as well. Risks/Concerns:: Client is future oriented. Denies any suicidal ideations, plan, or intent as of 06/03/20. Progress Toward Goals/Plan:: Client continues to have consistent attendance and client has been consistent with individual homework. Client reports her mood was improved last week, but client recently had an appointment with her urologist and now feels worse. Client endorses a depressed mood, ?obsessing? about her health, lack of appetite, lack of motivation, and low energy. Client receptive to goal setting today and practicing coping skills .Will continue IOP tx to prevent decompensation, improve daily functioning, and reduce anxious thinking. Time Stopped:: 10:03
--- NOTE | 2020-06-05 09:00 | BH.SGPN.GN ---
This psychotherapy group was provided via telehealth using two-way, real-time interactive telecommunication technology between the patients and the provider. The interactive telecommunication technology included audio and video. The patient was offered telemedicine as an option for care delivery during the COVID-19 pandemic and consented to this option. Patient location: [place] Provider located at [facility] Behaviors/Verbalizations/Mental Status: []Client alert and oriented, casually dressed. Eye contact good. Motor activity appropriate. Speech within normal limits. Affect constricted, mood anxious and dysthymic. Thoughts linear, logical, no signs of hallucinations or delusions. Reviewed client?s symptom tracker, no risk or plan for suicide ideation as of 06/05/20. Client Response/Progress/Benefit: []Client responded well to session, engaged throughout and participated in group discussion. Client reported feeling ?relieved for the weekend? this morning as client looks forward to having a break from work to spend quality time with and dogs. Identified positives as eating a full meal and completing self-care of doing makeup which were both goals client is actively working on. Stressor includes feeling physically ill, but client is using opposite action to join IOP today. Client?s future goal is to increase her self-care by doing yoga and walking her dogs. Progress noted as client reports working on tx goals. Benefited from group as client offered positive feedback to other group members. Will continue IOP to improve daily functioning, decrease anxiety symptoms, and continue the use of healthy coping skills. Narrative Note: []
--- NOTE | 2020-06-05 10:05 | BH.SGPN.GN ---
Behaviors/Verbalizations/Mental Status: [] Eye contact is good. Motor activity is appropriate. Appearance is casual. Speech is Appropriate. Mood is anxious. Affect is congruent. Thoughts are linear and logical. No evidence of psychosis. Client Response/Progress/Benefit: [] Pt was an active participant in group discussion and completed group worksheet. Attentive. Provided appropriate feedback. Group worked together to define anger and discussed the ways anger can impact one internally and externally. Pt identified feeling invalidated, hurt and hopeless as being internal events or feelings that can lead to anger. Pt also identified external ways that he commonly expresses his anger which includes; being sarcastic, cussing, and being inpatient. Benefited from group by increasing understanding of the impact of anger on mental health. Will continue in IOP to prevent decompensation, increase healthy coping, and decrease panic. Narrative Note: [] This psychotherapy group was provided via telehealth using two-way, real-time interactive telecommunication technology between the patients and the provider.?The interactive telecommunication technology included audio and video.? ?The patient was offered telemedicine as an option for care delivery during the COVID-19 pandemic and consented to this option. ?Patient location: [place] ?Provider located at [facility]
--- NOTE | 2020-06-05 11:00 | BH.SGPN.GN ---
This psychotherapy group was provided via telehealth using two-way, real-time interactive telecommunication technology between the patients and the provider.?The interactive telecommunication technology included audio and video.? ?The patient was offered telemedicine as an option for care delivery during the COVID-19 pandemic and consented to this option. ?Patient location: [place] ?Provider located at [facility] Behaviors/Verbalizations/Mental Status: []Client alert and oriented, neatly dressed and groomed. Eye contact good. Motor activity appropriate. Speech within normal limits. Affect congruent, mood euthymic. Thoughts linear, logical, no signs of hallucinations or delusions. Client Response/Progress/Benefit: []Pt was engaged throughout AEB contributing to group discussion and self-reflection. Pt contributed as the group provided examples of physical warning signs for anger and identified personal warning signs. These included: clenched teeth, redness, and shaky. Pt contributed as group brainstormed healthy coping skills for better managing anger which included: music, walking/exercise, meditation, reflecting on consequences, and grounding. Pt appeared to benefit from identifying different techniques to manage anger as well as gaining awareness of potential consequences of unmanaged anger. Pt selected listening to understand as the coping skill pt would like to try to regulate anger. Progress noted as pt reports increased self-care this week. However, pt continues to struggle with managing anxious thoughts. Will continue IOP tx to improve ability to manage anxious thoughts and increase daily functioning. Narrative Note: []
--- NOTE | 2020-06-10 08:57 | BH.SGPN.GN ---
Addendum entered and electronically signed by Giselle Tanner LSW 06/11/20 14:08: This psychotherapy group was provided via telehealth using two-way, real-time interactive telecommunication technology between the patients and the provider.?The interactive telecommunication technology included audio and video.? ?The patient was offered telemedicine as an option for care delivery during the COVID-19 pandemic and consented to this option. ?Patient location: [place] ?Provider located at [facility] Original Note: Behaviors/Verbalizations/Mental Status: [] Eye contact is fair to good. Alert and oriented. Motor activity is appropriate. Appearance is casual. grooming is appropriate. Speech is Appropriate. Mood is euthymic and anxious. Affect is congruent. Thoughts are linear and logical. No evidence of psychosis or hallucinations. Client Response/Progress/Benefit: [] Pt engaged in session AEB listening to others and willingness to share thoughts and feelings with group. Pt did well to identify personal wins. Shared that she was able to drive for the first time since March over the weekend. Noted this was empowering and gave her something positive to reflect on. Additional mental health win identified as plans to attend her first appointment for EMDR therapy this evening. Expressed feeling anxious but hopeful about beginning the therapeutic process. Receptive of supportive feedback. Shared that this is also her stressor and noted plans to ?go into it with an open mind? so that she does not become discouraged if it does not go as expected. Recommended continued IOP tx to continue addressing mental health sx management and prevent decompensation. Narrative Note: []
--- NOTE | 2020-06-10 10:10 | BH.SGPN.GN ---
This psychotherapy group was provided via telehealth using two-way, real-time interactive telecommunication technology between the patients and the provider.?The interactive telecommunication technology included audio and video.? ?The patient was offered telemedicine as an option for care delivery during the COVID-19 pandemic and consented to this option. ?Patient location: [place] ?Provider located at [facility] Behaviors/Verbalizations/Mental Status: []Client alert and oriented, neatly dressed and groomed. Eye contact good. Motor activity appropriate. Speech within normal limits. Affect congruent, mood euthymic. Thoughts linear, logical, no signs of hallucinations or delusions. Client Response/Progress/Benefit: []Pt was an active participant in group discussion and was attentive during psychoeducation. Provided input on the quote of the day and shared ?my mind creates physical pain in my body.? Group was primarily educational and introduced and gave examples of the 10 cognitive distortions. Pt provided some examples of personal experiences for certain cognitive distortions such as mind-reading and labeling. Benefited from education and increased awareness of cognitive distortions and role that they play in negative thoughts and emotions. Pt making progress AEB pt report of reduce isolation this week. Will continue IOP tx to further decrease anxiety, improve mood stability, and combat negative thoughts. Narrative Note: []
--- NOTE | 2020-06-10 11:10 | BH.SGPN.GN ---
Behaviors/Verbalizations/Mental Status: []Client alert and oriented, casual dress, hygiene tended to. Eye contact fair. Motor activity appropriate. Speech within normal limits. Affect congruent. Mood euthymic. Thoughts linear, logical, no signs of hallucinations or delusions. Client Response/Progress/Benefit: []Client was an active participant AEB client providing input throughout session, listening attentively to peers and completing worksheet. Client attentive during psychoeducation and additional discussion on cognitive distortions. Client engaged in discussion about how to reframe distorted thoughts into more realistic, rational statements. Client shared her distorted thought is I should be able to manage my anxiety better by now. Client able to reframe distorted thought to I have made progress. It takes time to get better. Client seemed to benefit from practicing identifying and reframing distorted thoughts. client is to continue IOP to continue use of healthy coping skills, decrease anxious symptoms and prevent decompensation.
--- NOTE | 2020-06-12 10:12 | BH.SGPN.GN ---
This psychotherapy group was provided via telehealth using two-way, real-time interactive telecommunication technology between the patients and the provider. The interactive telecommunication technology included audio and video. The patient was offered telemedicine as an option for care delivery during the COVID-19 pandemic and consented to this option. Patient location: [place] Provider located at [facility] Behaviors/Verbalizations/Mental Status: []Client alert and oriented, casually dressed and groomed. Eye contact good. Motor activity appropriate. Speech within normal limits. Affect congruent, mood anxious. Thoughts linear, logical, no signs of hallucinations or delusions. Client Response/Progress/Benefit: []Client was an active participant AEB contributing to discussion and staying engaged with group activity while being telehealth. Connected with the topic of pitfalls and attentive as the group discussed barriers that keep them from choosing a healthier path to mental wellness such as pitfalls. Group worked together to identify examples of personal pitfalls which included; distorted thinking, lack of motivation, fear of failure, self-blame, and unhealthy coping. Client declined to share her personal pitfalls though nodded in agreement as other?s discussed struggling with fear. Engaged during the activity by offering group members encouragement. Client benefited from group as she learned her barriers from improving her mental symptoms. Client will continue IOP to increase the use of healthy coping skills, reduce negative thinking, and prevent decompensation. Narrative Note: []
--- NOTE | 2020-06-12 11:13 | BH.SGPN.GN ---
This psychotherapy group was provided via telehealth using two-way, real-time interactive telecommunication technology between the patients and the provider.?The interactive telecommunication technology included audio and video.? ?The patient was offered telemedicine as an option for care delivery during the COVID-19 pandemic and consented to this option. ?Patient location: [place] ?Provider located at [facility] Behaviors/Verbalizations/Mental Status: []Client alert and oriented, neatly dressed and groomed. Eye contact good. Motor activity appropriate. Speech within normal limits. Affect congruent, mood euthymic. Thoughts linear, logical, no signs of hallucinations or delusions. Client Response/Progress/Benefit: []Client receptive of session, engaged throughout AEB client participating to discussion and taking notes. Client completed a worksheet where client identified personal pitfalls that could impact mental health progress. Client?s pitfalls included: negative thinking, negative self-talk, lack of self-care, and catastrophizing thinking. Attentive and contributing during group brainstorm of strategies to overcome pitfalls. Client will work on overcoming pitfalls by following a daily self-care routine. Benefited from identifying personal pitfalls and strategies to overcome these pitfalls. Progress made in client?s report of getting out of her house more this week. Will continue IOP tx to further reduce anxiety, improve mood stability, and reduce negative thinking. Narrative Note: []
--- NOTE | 2020-06-12 15:24 | BH.MDN ---
Multi-Disciplinary Note - Note 45-min Individual Time Started:: 09:23 Date: 06/12/20 Purpose of session/treatment goals addressed:: The purpose of this session was to work on goal #1 of client's tx plan. Eye Contact:: Good Motor Activity:: Appropriate Appearance:: Casual Speech:: Appropriate Mood:: Euthymic Affect:: Full Thoughts:: Linear, Logical, No evidence of hallucinations/delusions noted Staff Interventions:: Therapist used active listening and open-ended questions to explore current stressors, symptoms, and triggers. Therapist reviewed client's homework and provided further psychoeducation on breaking the anxiety maintenance cycle. Therapist helped client create small exposure goals to help client get uncomfortable on purpose. Client Response:: Client responded well to session, open to meeting with therapist. Client reports she is feeling better this week. Client shared she is working on her goal of getting out of the house more. Client went into work in person this week which was beneficial for client in many ways. Client recognizes that when she reduces isolation and avoidance, her mood improves. Client receptive to discussion of maintenance cycles and how to further decrease anxiety. Client has been reading the overcoming intrusive thoughts book and one of the suggestions is to get uncomfortable on purpose. Client was initially anxious about setting small exposure goals, but client also saw the benefits. Client identified several goals for the weekend such as making phone calls, getting outside daily, getting out of bed right away in the morning, and coming in person to IOP. Risks/Concerns:: Client denies any suicidal ideations, plan, or intent. Progress Toward Goals/Plan:: Client's mood and affect are improved today. Client reports feeling less anxious today and reports less googling of symptoms as well. Client continues to be consistent with homework and engaged in group sessions. Client receptive to working on facing anxiety-producing situations. Client continues to endorse daily anxiety of reduced intensity, avoidance behaviors, hyperfocusing on pain/health, low appetite, and low energy. Client will continue IOP tx to promote use of healthy coping skills, improve daily functioning, and reduce avoidance behaviors. Time Stopped:: 10:04
== END 2020-06-14 23:59 ==
LOC: BHIOP 09:00
PROVIDERS: PCP Family Medicine; Referring Provider Psychiatry & Neurology Psychiatry; Visit Provider Psychiatry & Neurology Psychiatry
DX: F45.21 Hypochondriasis (principal); F33.1 Major depressive disorder, recurrent, moderate; F41.1 Generalized anxiety disorder; F43.10 Post-traumatic stress disorder, unspecified; Z79.899 Other long term (current) drug therapy
CPT/HCPCS: H0035; 90832; 90834; 90853

== ENCOUNTER 2020-05-26 07:14 | Day surgery (SDC) | payer OTHER, SELFPAY ==
[2020-04-14 14:58] VITALS: BMI 20.9
[2020-05-26 07:52] LABS: Internal QC Validated? YES +Cl - CLEAR BKGD; Pregnancy, Urine Negative Negative
[2020-05-26 07:59] VITALS: BP 130/90; PULSE 91; RESP 16; TEMP 36.6; O2SAT 98; BMI 20.2
[2020-05-26] MEDS: Lactated Ringers 1,000 ML 100 ML IV (08:03)
--- NOTE | 2020-05-26 08:37 | OP.PCM_ITS ---
Problem List (1) Urgency of urination Status: Acute (2) Nocturia Status: Acute (3) Bladder pain Status: Acute Report of Operation Date of Procedure: 05/26/20 Pre-Operative Diagnosis: Urgency, nocturia and bladder pain Post-Operative Diagnosis: Same Surgery/Procedure Performed:: Pelvic exam under anesthesia, cystoscopy Description of Surgical Findings:: Bladder capacity of 700 cc, increased injection, rare glomerulation, left levator complex tense and edematous, thickened compared to the right Specimen's removed: None Estimated Blood Loss (mL): 2 cc. Description of Procedure: The patient is a 39-year-old female with urgency, nocturia and bladder pain who presents for further evaluation under anesthesia with cystoscopy. Informed consent was obtained including a discussion of the risks of COVID-19. She desired to proceed secondary to the severity of her symptoms. The patient was taken the operating room placed on the operating room table. Anesthesia monitored the head, neck, airway, IV access and vital signs thr oughout the case. Once anesthesia was appropriate ministered the patient was placed into dorsal lithotomy position was prepped and draped in usual sterile fashion. A pelvic examination revealed no evidence of pelvic organ prolapse. However, the levator complex on the left side was very tense, edematous and enlarged compared to the right side. No specific trigger point was identified. At this time, the 21 [place] cystoscope with 70 degree lens was inserted through the urethra under direct visualization into the urinary bladder. There were no ulcerations identified. The ureteral orifices were located in the correct anatomic position on the area of the trigone. The bladder mucosa was injected diffusely. The bladder was filled to capacity and allowed to sit for 2 minutes. This was then measured at 550 cc with no terminal hematuria. There were rare glomerulations identified upon reentry into the urinary bladder. The bladder was then filled to capacity a second time until the fluid began to leak around the cystoscope. This was allowed to sit for 2 minutes. Upon emptying of the bladder, the capacity increased to 700 cc. At this time the cystoscope was removed and the patient was awakened and taken to the recovery room in good condition. There were no complications during this procedure. Grafts/Implants Used: None - Complications None - Admit VTE Documentation VTE Present on Admission: Yes VTE Mechan Device Prophylaxis: SCD's VTE Pharm Prophylaxis ordered?: No Reason prophylaxis not ordered:: Treatment Not Indicated
[2020-05-26] MEDS: Cefazolin 2 GM in 0.9% Normal Saline 100 ML IV (08:50)
[2020-05-26 09:15] VITALS: BP 123/85; BP 130/90; PULSE 90; RESP 18; TEMP 36.1; O2SAT 98
--- NOTE | 2020-05-26 09:26 | PCM.DC.URO ---
Discharge Diet: No Restrictions Discharge Activity: May not drive while taking narcotic pain medications. May resume sexual activity in: 2 weeks Call your doctor if you observe: Fever of 101 or Higher, Inability to urinate, Inability to have a bowel movement, Calf discomfort, Uncontrolled pain Allergies/Adverse Reactions: Allergies codeine Adverse Reaction (Verified 05/22/20 08:07) Itching Medications to take at Discharge drospiren-e.estrad-l.mefol 3 mg-0.02 mg-0.451 mg(24)/0.451 mg(4)tablet 1 tab PO QDAY #84 tab 12/02/19 Sertraline HCl [Zoloft] 125 mg PO DAILY 05/21/20 busPIRone [Buspar] 5 mg PO BID 05/21/20 Calcium Carbonate/Vitamin D3 [Calcium 500 mg-Vit D3 600 Unit] 1 ea PO DAILY 05/22/20 Mirabegron [Myrbetriq] 50 mg PO DAILY 05/22/20 [place]-3 Fatty Acids/Fish Oil [Fish Oil 1,000 mg Capsule] 1 ea PO DAILY 05/22/20 Pantoprazole Sodium [Protonix] 40 mg PO DAILY 05/22/20 Psyllium Husk [Fiber] 0.52 gm PO DAILY 05/22/20 Cephalexin [Keflex] 500 mg PO Q12 3 Days #6 cap 05/26/20 Oxycodone HCl/Acetaminophen [Percocet 5/325] 2 tab PO Q8H PRN PRN 7 Days #20 tab 05/26/20 Phenazopyridine HCl [Pyridium] 200 mg PO TID PRN PRN 7 Days #30 tab 05/26/20 The following prescriptions were given: Cephalexin [Keflex] 500 mg PO Q12 3 Days #6 cap Transmission Status: Received by LOLY GALEANO Oxycodone HCl/Acetaminophen [Percocet 5/325] 2 tab PO Q8H PRN PRN 7 Days #20 tab PRN Reason: Pain Transmission Status: Received by LOLY GALEANO Phenazopyridine HCl [Pyridium] 200 mg PO TID PRN PRN 7 Days #30 tab PRN Reason: Bladder Spasms Transmission Status: Received by LOLY GALEANO Primary Care Physician: Javier Mckeon MD [Primary Care Provider] - Test Results: Test results from this visit will be discussed in further detail at your follow-up appointment, if applicable. Please Follow Up With: Yesi Epstein MD Proposed Discharge Date: 05/26/20
[2020-05-26 09:30] VITALS: BP 113/80; BP 130/90; PULSE 83; RESP 18; O2SAT 97
[2020-05-26 09:44] VITALS: BP 117/80; BP 130/90; PULSE 77; RESP 18; TEMP 36.2; O2SAT 98
[2020-05-26] MEDS: Acetaminophen 325 MG Tablet PO (09:58)
[2020-05-26] MEDS: oxyCODONE 5 MG Tablet PO (09:58)
[2020-05-26 10:46] VITALS: BP 114/68; BP 130/90; PULSE 86; RESP 16; TEMP 36; O2SAT 100
== END 2020-05-26 10:49 | disposition home or self-care (01) ==
LOC: SDC 07:14 → AC 07:15
PROVIDERS: Anesthesiology; PCP Family Medicine; Referring Provider Urology; Visit Provider Urology
PROC: 0TBB8ZX Excision of Bladder, Via Natural or Artificial Opening Endoscopic, Diagnostic (ICD-10-PCS; CPT 52000; principal; 2020-05-26 08:40)
DX: R39.15 Urgency of urination (principal); R35.1 Nocturia; R39.82 Chronic bladder pain; K21.9 Gastro-esophageal reflux disease without esophagitis; F41.9 Anxiety disorder, unspecified; F32.9 Major depressive disorder, single episode, unspecified; Z79.899 Other long term (current) drug therapy; Z20.822 Contact with and (suspected) exposure to COVID-19
CPT/HCPCS: 52000; 81025; 87426; C9803; J7120; J2405

== ENCOUNTER 2020-06-17 09:00 | Outpatient (RCR) | payer OTHER, SELFPAY ==
--- NOTE | 2020-06-12 09:00 | BH.SGPN.GN ---
This psychotherapy group was provided via telehealth using two-way, real-time interactive telecommunication technology between the patients and the provider. The interactive telecommunication technology included audio and video. The patient was offered telemedicine as an option for care delivery during the COVID-19 pandemic and consented to this option. Patient location: [place] Provider located at [facility] Behaviors/Verbalizations/Mental Status: []Client alert and oriented, casually dressed. Eye contact good. Motor activity appropriate. Speech within normal limits. Affect congruent, mood euthymic and anxious. Thoughts linear, logical, no signs of hallucinations or delusions. Reviewed client?s symptom tracker, no risk or thoughts ofsuicide ideation, plan, or intent as of 06/12/20. Client Response/Progress/Benefit: []Client responded well to session, engaged throughout and participated in group discussion. Client reported feeling ?optimistic? this morning. Reported a positive as going into the office for the first time since March and visited with some co-workers. Also reported continuing working on her goal of getting out of the house by driving to restaurants to brain picker meals and spending more time outside in nature. Identified breathing, healthy distractions, and opposite action as healthy coping skills. Benefited from group as client offered positive feedback to other group members. Progress noted as client reports using healthy coping skills as well as getting out of her house to accomplish personal goals. Will continue IOP to continue the use of healthy coping skills, challenge thoughts, and continue to practice self-care. Narrative Note: []
--- NOTE | 2020-06-17 09:01 | BH.SGPN.GN ---
Behaviors/Verbalizations/Mental Status: []Eye contact is good. Alert and oriented. Motor activity is appropriate. Appearance is casual. grooming is appropriate. Speech is Appropriate. Mood is anxious and euthymic. Affect is congruent. Thoughts are linear and logical. No evidence of psychosis or hallucinations. Client Response/Progress/Benefit: []Pt engaged in session AEB listening to others, providing supportive feedback, and willingness to share thoughts and feelings with group. Pt did well to identify personal wins, noting she was feeling accomplished on this date. Shared that she was able to spend some time outdoors with her and dog on Monday despite having struggled with increased anxiety the previous date. Noted that the outdoors often aids in improving her mood. Additional win noted as making time to read through the book on intrusive thoughts she was recommended by therapist and expressed connecting with content discussed throughout. Pt shared current stressor as continuing to struggle with anxiety surrounding physical pain, however shared trying to reframe these thoughts when experiencing them. Progress noted in pt improved application of thought challenging and reframing tools. Recommended continued IOP tx to continue improving skill application and prevent decompensation while working on anxiety management. Narrative Note: []
--- NOTE | 2020-06-17 10:15 | BH.SGPN.GN ---
Behaviors/Verbalizations/Mental Status: []Client alert and oriented, casually dressed and appropriately groomed. Eye contact good. Motor activity appropriate. Speech within normal limits. Affect congruent, mood anxious and euthymic. Thoughts linear, logical, no signs of hallucinations or delusions. Client Response/Progress/Benefit: []Client engaged during session AEB taking notes, providing input, and listening attentively to others. Client worked with peers on defining goals and brainstorming the benefits of goal setting. Benefits included: having a purpose or sense of direction, feels good, gives intentional focus, helps us make progress, and hold self-accountable. Contributed as group discussed the barriers that keep people from either setting goals or following through with goals. Client shared she doesn't set goals because doesn't want to fail. Client attentive during psychoeducation on SMART goals. Appeared to benefit from learning the mental health benefits of setting goals using SMART criteria. Client will continue IOP to increase the use of healthy coping skills, decrease avoidance behaviors and prevent decompensation. Narrative Note: []
--- NOTE | 2020-06-17 11:10 | BH.SGPN.GN ---
Behaviors/Verbalizations/Mental Status: []Client alert and oriented, neatly dressed and groomed. Eye contact good. Motor activity appropriate. Speech within normal limits. Affect congruent, mood euthymic and anxious. Thoughts linear, logical, no signs of hallucinations or delusions Client Response/Progress/Benefit: []Client was an active participant AEB client taking notes, providing ideas, and creating a personal goal. Client was willing to complete the worksheet in which client was challenged to develop a personal SMART goal. Client?s goal is to read 1-2 chapters of the overcoming intrusive thoughts book every night for one week. Client reported this will benefit client because it will help client learn more about intrusive thoughts and how to cope with them. Client also shared that reading at night is calming for client. Benefited from this group by developing a short-term SMART goal related to mental health. Will continue IOP tx to further decrease anxiety, reduce negative thinking, and improve daily functioning. Narrative Note: []
--- NOTE | 2020-06-17 11:50 | PCM.BH.PN_ITS ---
Progress Note Progress Note: History of Present Illness/Interim History: [] The patient is a 39-year-old female who is seen in follow-up at the [facility] behavioral health IOP program. She is being treated for anxiety and depression and was last seen about 1 month ago. Her Zoloft was increased to 150 mg a day a few weeks ago by her outpatient psychiatric provider. The patient states that she does feel that she is more relaxed and less depressed and feels the Zoloft is helping her. Her anxiety is decreased but there is still some anxiety present. She has not had any panic attacks. Her mood is better and she is able to get out of bed much easier than before. She feels she is benefiting from the IOP program and learning valuable skills to help her deal with her anxiety issues. The patient is focused on her health and states that her urinary tract work-up was completed and she was told that she has an inflamed pelvic floor and is now receiving physical therapy for this which she feels has been helpful. She states that she feels that her hands are normally a little bit shaky but she feels like this may have gotten slightly worse since increasing the Zoloft. She does not use any caffeine. She denies feeling hopeless and is starting to enjoy things at home. She denies any suicidal or homicidal ideation, thoughts of , hallucinations or delusions. Current Psychiatric Medications: [] Zoloft 150 mg p.o. daily (on this dose few weeks now); BuSpar 5 mg p.o. 3 times a day. Mental Status Examination: [] The patient is a 39-year-old female who appears normal for stated age and is seen wearing a mask due to the pandemic. She is casually dressed and groomed with good hygiene. She is cooperative during the interview and has no psychomotor agitation or retardation. Speech is normal rate and rhythm and fluent with no pressure. Eye contact is good. Affect is mildly constricted. Thought process is goal-directed and organized. Thought content: No evidence of passive thoughts of , suicidal ideation, homicidal ideation, hallucinations or delusions. Reality testing is intact. Judgment is intact. Insight is fair to good. Impulsivity is low. Diagnoses: [] Darwin I: [] Illness anxiety disorder, care seeking type; major depressive disorder, recurrent, moderate; generalized anxiety disorder; PTSD Darwin II: [] Negative Darwin III: [] Bladder discomfort Darwin IV:[]] Primary support, health and work issues Plan: [] The patient will continue the IOP program in behavioral health at [facility] as the structure, support, education, individual and group therapy will hopefully prevent worsening of the patient's symptoms. The risks, options, possible side effects and complications of the medications were discussed with the patient and she understands and accepts these. She felt safe during the interview and if at any time she does not feel safe she will let us know or go to the emergency room. No medication changes were made today. The patient will continue to follow-up with her outpatient psychiatric and medical providers.
--- NOTE | 2020-06-17 13:36 | BH.MDN_ITS ---
Multi-Disciplinary Note - Note 30-min Individual Time Started:: 12:10 Date: 06/17/20 Purpose of session/treatment goals addressed:: To address current stressors, application of coping skills, and symptoms. Another goal was to administer the DSM-5 and evaluate client's progress at the 4-week chuck. Eye Contact:: Good Motor Activity:: Appropriate Appearance:: Neat Speech:: Appropriate Mood:: Euthymic, Anxious Affect:: Congruent Thoughts:: Linear, Logical, No evidence of hallucinations/delusions noted Staff Interventions:: Explored current stressors, application of coping skills, and symptoms. Encouraged personal reflection on progress and gave pt DSM-5. Reviewed thought challenging strategies and discussed utilizing self-compassion as a tool to overcome perfectionism and all or nothing thinking. Discussed plan of care moving forward and gave client a book recommendation on self-compassion. Client Response:: Client responded well to session, open to meeting with therapist. Client reports she enjoys coming to IOP tx in person and felt like she really benefitting from today. Client and therapist discussed the benefits of client attending in person for the rest of tx. Client reports she would like to do that, but client is anxious. Receptive to psychoeducation on how avoidance behaviors reinforce the anxiety maintenance cycle. Client recognizes this and willing to try being in person rather than virtual. Client reflected on her progress and shared she has been feeling less depressed and she has been doing more things. Client has been driving, doing yoga, and getting out of bed more easily. Client shared reading the overcoming unwanted intrusive thoughts book has helped client better handle her anxious thoughts about her health. Client stated she wants to be able to challenge her perfectionism and performance anxiety which client has struggled with since she was a child. Discussed self- compassion and client shared being open to reading on the topic. Risks/Concerns:: Client denies any suicidal ideations, plan, or intent as of 06/17/20. Progress Toward Goals/Plan:: Client is making progress towards her tx goals AEB her reduced DSM-5 scores and her reduced isolative behaviors. Client was able to attend IOP in person today which is significant as client had not been leaving her house due to anxiety exacerbated by COVID. Client continues to struggle with anxiety and intrusive thoughts about her health, but the symptoms are resolving. Client would like to continue IOP tx for another 3 weeks to strengthen coping skills, reduce negative thinking, and improve self-compassion. Client is also working on reducing avoidance behaviors and client plans to attend IOP in person for the duration of the program. Time Stopped:: 12:40
--- NOTE | 2020-06-17 13:47 | BH.TPR ---
Treatment Plan Review Date of Admission:: 05/18/20 Date of Treatment Plan Review:: 06/17/20 Admitting Diagnoses:: Illness anxiety disorder, care seeking type (F 45.21); major depressive disorder, recurrent, moderate; generalized anxiety disorder; PTSD Current Diagnoses:: Illness anxiety disorder, care seeking type (F 45.21); major depressive disorder, recurrent, moderate; generalized anxiety disorder; PTSD Patient's Response to Treatment:: Client has been responding well to treatment and is demonstrating progress towards her treatment goals AEB reduction in DSM-5 scores and high engagement in group and individual sessions. Client has been using healthy coping skills including self-care, yoga, self-talk, reading, opposite action, and thought challenging. Client is an active group member who gives insight to discussion, feedback to peers, and connects the topics to her daily life. Client is highly engaged in her individual sessions and is consistent with homework and skill utilization outside of group. Client has been working through the overcoming intrusive thoughts book to help client catch and manage catastrophizing, health-related anxious thoughts. Client's consistent application of skills is likely the reason for her reduction in symptoms and ability to refrain from self-harm. Client is also working on ?getting uncomfortable on purpose? to help reduce avoidance and increase confidence in her skills. Status of Current Problems and Symptoms: Client has been demonstrating progress towards tx goals, but she continues to struggle with overcoming avoidance behaviors, anxious thoughts, and perfectionism. Client's physical therapy is helping client's bladder pain which has helped reduce client's health anxiety. Client is currently getting EMDR therapy to manage PTSD symptoms. Problem #1 Problem Name:: Pt. will reduce overall frequency and duration of health anxiety Status of Goals:: Objective 1- complete with ongoing work encouraged. Client can identify anxiety triggers and she has been consistently using healthy coping skills. Client?s DSM-5 scores for anxiety have decreased by 50% since admission. Objective 2- partially complete. Client has demonstrated significant improvement in catching intrusive thoughts and has been practicing strategies of acceptance and self-talk daily. Client struggles to manage these thoughts when her physical pain increases. Team Recommendations:: Client encouraged to continue working on this treatment goal to reinforce healthy coping skills and to further decrease anxiety symptoms which will help client's daily functioning. Client and therapist currently working on managing health-related intrusive thoughts, self-compassion, and self-care. Problem #2 Problem Name:: Pt. will reduce depressive symptoms, lack of motivation, and sadness Status of Goals:: Objective 1-complete with ongoing work encouraged. Client?s DMS-5 scores for depression have decreased by 43% since admission. Client has been using opposite action, cooking, yoga, and spending time with supports. Objective 2- complete with ongoing work encouraged. Client is improving with setting and accomplishing small goals, getting out of the house more, and being active. Will continue to further increase. Team Recommendations:: client is encouraged to continue working on this goal to reinforce healthy coping skills, further improve mood stability, and further increase behavioral activation.
--- NOTE | 2020-06-19 09:03 | BH.SGPN.GN ---
Behaviors/Verbalizations/Mental Status: []Client alert and oriented, neatly dressed and groomed. Eye contact good. Motor activity appropriate. Speech within normal limits. Affect congruent, mood euthymic. Thoughts linear, logical, no signs of hallucinations or delusions. Reviewed client?s symptom tracker, no risk for suicidal ideation, plan, or intent as of 06/19/20 Client Response/Progress/Benefit: []Client responded well to session, providing supportive feedback and attentive. Client reports feeling optimistic this morning. Client has been using many healthy coping skills which has helped client better manage anxiety and reduce depression. Client is attending IOP in person for the second time this week and she has been going into work rather than working remotely. Client shared being around others lifts client's mood and helps reduce anxiety in the long-term. Client has been using self-talk and exercise as well to manage anxiety. Client's stressor is driving, but client has been able to manage this. Appeared to benefit from connecting with peers and reflecting on progress. Will continue IOP tx to further improve mood stability and daily functioning. Narrative Note: []
--- NOTE | 2020-06-19 11:10 | BH.SGPN.GN ---
Behaviors/Verbalizations/Mental Status: []Client alert and oriented, casually dressed and groomed. Eye contact fair. Motor activity appropriate. Speech within normal limits. Affect congruent, mood euthymic and anxious. Thoughts linear, logical, no signs of hallucinations or delusions. Client Response/Progress/Benefit: []Client responded well to session, engaged and participated throughout discussion. Client participated in the discussion of how each resiliency component can help increase personal resiliency. Client identified current resiliency traits client currently possesses and how these can continue to help client in treatment. Client identified personal resilience traits as accepting change as a part of living and increased self-awareness. Client participated in group activity and was open to ideas of change and becoming comfortable in uncomfortable situations. Appeared to benefit from connecting with peers and sitting with uncomfortable feelings rather than avoiding them. Progress noted as client continues pushing herself to meet goals. Client?s goal is to continue increasing self-awareness by being present in the moment to increase resiliency. Will continue IOP to continue the use of healthy coping skills, challenge negative thoughts, and improve anxiety. Narrative Note: []
--- NOTE | 2020-06-24 09:05 | BH.SGPN.GN ---
Behaviors/Verbalizations/Mental Status: []Client alert and oriented, neatly dressed and groomed. Eye contact good. Motor activity appropriate. Speech within normal limits. Affect congruent, mood euthymic and anxious. Thoughts linear, logical, no signs of hallucinations or delusions. Reviewed client?s symptom tracker, no risk for suicidal ideation, plan, or intent as of 06/24/20 Client Response/Progress/Benefit: []Client responded well to session, attentive and engaged. Client reports feeling restless this morning as client's mind feels like it's racing. Client shared many mental health wins this morning such as getting out of the house more, spending time with friends, and going into work more often. Client has made significant progress with reducing avoidance behaviors. Client shared her mind is racing because I keep thinking I have a lot to do. Client connected with feeling a false sense of urgency when feeling anxious and the group discussed how one can cope with this. Client recognized that prioritizing and using self-talk will benefit her. Progress noted as client is reporting reduced avoidance behaviors and overall improved mood. Will continue IOP tx to promote gains, further reduce symptoms, and increase self-compassion. Narrative Note: []
--- NOTE | 2020-06-24 10:15 | BH.SGPN.GN ---
Behaviors/Verbalizations/Mental Status: [] Client alert and oriented, neat and casually dressed and groomed. Eye contact good. Motor activity appropriate. Speech within normal limits. Affect congruent, mood anxious and euthymic. Thoughts linear, logical, no signs of hallucinations or delusions. Client Response/Progress/Benefit: [] Client active participant in group AEB client contributing thoughts and ideas throughout session and listening attentively to peers. Client connected with the quote and shared that taking no action means ?making changes?. Group worked together to identify barriers to taking action in their lives which included: fear of failure, lack of resources, indecision, anger/resentment, and distorted thoughts. Group identified that ?taking action? is needed in order to make mental health progress. Client identified personal areas they would like to take back control over in life to include: fear of failure, negative self-talk, fear of decision making, and ?what if? thoughts. Client shared wanting to focus on first addressing fear of failure. Benefited from awareness of personal areas client wants to improve and benefits to taking action towards mental wellness. Will continue IOP tx to improve mental health sx management, further reinforce healthy coping skills, and prevent decompensation. Narrative Note: []
--- NOTE | 2020-06-24 11:20 | BH.SGPN.GN ---
Behaviors/Verbalizations/Mental Status: []Client alert and oriented, casually dressed and appropriately groomed. Eye contact fair. Motor activity appropriate. Speech within normal limits. Affect congruent, mood anxious. Thoughts linear, logical, no signs of hallucinations or delusions. Client Response/Progress/Benefit: []Pt engaged participant AEB pt providing input during session, listened attentively to others and completed worksheet. Pt helped group identify the mental health benefits of taking small actionable steps towards addressing barriers and promoting healthy change in daily life. Pt stated she will work on decreasing impact of fear of failure on her decision making. Pt stated she will do this by practicing opposite action and think about the consequences of not changing. Pt stated putting a reminder in her phone will help keep her accountable. Seemed to benefit from creating action plan. Recommend continued IOP tx to continue use of healthy skills, challenge distorted thought patterns and prevent decompensation. Narrative Note: []
--- NOTE | 2020-06-25 09:05 | BH.SGPN.GN ---
Behaviors/Verbalizations/Mental Status: []Client alert and oriented, casually dressed and appropriately groomed. Eye contact fair. Motor activity appropriate. Speech within normal limits. Affect congruent, mood anxious. Thoughts linear, logical, no signs of hallucinations or delusions. Per symptom tracker pt denies suicidal ideation, plan or intention to date. Client Response/Progress/Benefit: []Pt responded well to session as evidenced by pt openly sharing thoughts and feelings. Pt identified mental health positive as going to her EMDR therapist yesterday. Additional mental health positive as getting her dishes completed last night. Pt stated current stressor is her job because this morning she was told next week she has to do a training at the last minute. Pt reported sometimes her workplace can be unorganized which leads to increased anxiety and stress for pt. Progress noted by pt reporting improved mood stability. Pt to continue IOP to maintain gains, challenge distorted thoughts and prevent decompensation. Narrative Note: []
--- NOTE | 2020-06-25 10:15 | BH.SGPN.GN ---
Behaviors/Verbalizations/Mental Status: []Client alert and oriented, neatly dressed and groomed. Eye contact good. Motor activity appropriate. Speech within normal limits. Affect congruent, mood euthymic and anxious. Thoughts linear, logical, no signs of hallucinations or delusions Client Response/Progress/Benefit: [] Client engaged in session AEB client providing input, taking notes, and listening attentively to peers. Client shared connecting with the importance of setting boundaries and noted failure to do so has led to increased anxiety and depression in the past. Client assisted group with identifying barriers to setting healthy boundaries. These included: past negative experiences, low self-worth, fear they won?t respect them, fear of hurting others, and distorted thoughts. Shared a barrier she has experienced in the past is self-doubt and fear of saying ?no? and upsetting someone. Client attentive during psychoeducation on the types of boundaries. Provided personal examples and discussed struggling with setting time boundaries at work which results in falling behind. Client seemed to benefit from increased awareness of how boundaries impact mental health. Will continue IOP tx to improve use of healthy coping, improve confidence levels, and reduce mental health sx. Narrative Note: []
--- NOTE | 2020-06-25 11:15 | BH.SGPN.GN ---
Behaviors/Verbalizations/Mental Status: []Client alert and oriented, neatly dressed and groomed. Eye contact good. Motor activity appropriate. Speech within normal limits. Affect congruent, mood euthymic and anxious. Thoughts linear, logical, no signs of hallucinations or delusions. Client Response/Progress/Benefit: []Client responded well to session, connecting with peers and receptive to supportive statements. Client engaged in the boundary self-assessment activity and attentive during psychoeducation on the different boundary styles. Client reported she is porous with her boundary setting as client self-identifies as people pleaser and shared ?I realize I?m putting myself last.? Client reports porous boundaries lead to increased work-stress and negative self-talk. Client participated in brainstorming strategies to improve boundary setting and reports wanting to work on setting small boundaries with trusted supporters and using open communication. Progress noted in client?s report of reduced intensity of symptoms and consistent application of coping skills. Client to continue IOP tx to promote mood stability, improve daily functioning, and further reduce negative thinking. Narrative Note: []
--- NOTE | 2020-06-25 14:51 | BH.MDN ---
Multi-Disciplinary Note - Note 45-min Individual Time Started:: 12:15 Date: 06/25/20 Purpose of session/treatment goals addressed:: The purpose of this session was to work on goal #1 of client's tx plan. Another goal was to discuss aftercare plan. Eye Contact:: Good Motor Activity:: Appropriate Appearance:: Neat Speech:: Appropriate Mood:: Euthymic, Anxious Affect:: Congruent Thoughts:: Linear, Logical, No evidence of hallucinations/delusions noted Staff Interventions:: Practiced distress tolerance skills to improve client's ability to sit with uncomfortable feelings without acting on impulse. Reviewed thought challenging strategies to combat negative self-talk. Reviewed self-care strategies to reduce anxiety and promote a better work-life balance. Client Response:: Client responded well to session, open to meeting with therapist. Client has been doing well, but she is currently feeling stressed about work. Client reflected on the group topic today and recognized that her boundaries at work are porous. Discussed how client can set healthy boundaries moving forward to promote self-care. Client reports fear of setting boundaries because of her negative thinking that people won't like me if I'm not helpful. Client willing to challenge this thought with therapist. Client able to practice self-compassion and reframe this thought, reminding herself that she has many other likeable qualities outside of being helpful to others. Client also used thought challenging to combat another anxious thought she has about a training coming up for work. Client described herself as a perfectionist and workaholic. 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 Client gained insight on how having a better work-life balance could promote even more mood stability. Receptive to working on a self-care plan for homework. Risks/Concerns:: Client denies any suicidal ideations, plan, or intent as of 06/25/20. Progress Toward Goals/Plan:: Client is making progress towards her tx goals AEB her self-report of reduced isolation, less healthy anxiety, and being more social. Client has been attending IOP in person and has been out in the community more than she has been in almost a year. Client continues to have ongoing anxious thinking, but client is getting better at managing her symptoms. Client will continue IOP tx to promote mood stability, further combat distorted thought patterns, and improve self-compassion. Time Stopped:: 13:00
--- NOTE | 2020-07-03 10:08 | BH.SGPN.GN ---
Behaviors/Verbalizations/Mental Status: []Client alert and oriented, neatly dressed and groomed. Eye contact good. Motor activity appropriate. Speech within normal limits. Affect congruent, mood euthymic and anxious. Thoughts linear, logical, no signs of hallucinations or delusions. Client Response/Progress/Benefit: []client receptive to session, listening attentively to others and providing input. Appeared to listen as the group brainstormed the positive and negative aspects of stress on physical and mental health. Group worked together to define stress and provided input during discussion about eustress vs distress. Client identified personal stressors which included: relationships, mental health, health issues, changes in routine, work, and COVID. Client states when client is overwhelmed with stress client becomes highly anxious, ruminates, and does not function as well. Client states her stress jar is not currently full, but ?it was overflowing when I started IOP.? Seemed to benefit from increased awareness of current stressors and impact of too much stress on the mind and body. Recommended to continue IOP tx to promote gains, reinforce healthy coping skills, and further decrease negative thinking. Narrative Note: []
--- NOTE | 2020-07-03 11:10 | BH.SGPN.GN ---
Behaviors/Verbalizations/Mental Status: []Client alert and oriented, casually dressed and groomed. Eye contact fair. Motor activity appropriate. Speech within normal limits. Affect congruent, mood anxious and euthymic. Thoughts linear, logical, no signs of hallucinations or delusions. Client Response/Progress/Benefit: []Client engaged in session AEB listening attentively to others, providing input, and taking notes throughout. Client remained attentive during discussion about the 4 A's of managing stress and discussed connecting with the various benefits of each. Client was interactive during group activity and reframing negative thoughts by practicing opposite action in the moment. Progress noted as client related the 4 A?s to personal experiences and how it impacts her stress. Client reported her goal is to practice avoiding triggers that can be avoided such as waking up at an earlier time to prepare herself for the day. Client will continue IOP to practice self-care and promote the use of healthy coping skills. Narrative Note: []
--- NOTE | 2020-07-03 15:41 | BH.MDN_ITS ---
Multi-Disciplinary Note - Note 30-min Individual Time Started:: 09:40 Date: 07/03/20 Purpose of session/treatment goals addressed:: The purpose of this session was to review self-care homework and combat distortions that reinforce anxiety and negative self-talk. Eye Contact:: Good Motor Activity:: Appropriate Appearance:: Neat Speech:: Appropriate Mood:: Euthymic, Anxious Affect:: Congruent Thoughts:: Linear, Logical, No evidence of hallucinations/delusions noted Staff Interventions:: Therapist reviewed homework from previous session and provided encouragement. Therapist used cognitive restructuring to combat negative thinking patterns that reinforce anxiety and negative self-talk. Therapist gave client homework to write down daily wins. Established client?s last day of tx. Client Response:: Client responded well to session, open to meeting with therapist. Client shared the self-care plan she created. Client plans to focus on having a better work-life balance. Client will do this by taking a break each day at work (rather than eating at her desk), getting outside, unplugging from her electronics, and sticking to a daily routine. Client receptive to the suggestion of writing out her wins each day. Client recognizes that she struggles to give herself credit and often tells herself that she should be functioning better than she is, even though she is doing well. Client gave an example from work this week. Client has a long-standing history of negative self-talk and recognizes the importance of catching and challenging these statements. In session client wrote out all the progress she has made to challen ge her distorted thought patterns. Risks/Concerns:: Client denies any suicidal ideations, plan, or intent as of 07/03/20. Progress Toward Goals/Plan:: Client continues to make progress towards tx goals AEB improved functioning at home and work, reduced isolation, and reduced safety behaviors. Client continues to struggle with setting boundaries, having unrealistic expectations of self, and using self-compassion. Client is getting better with challenging distortions. Will continue IOP tx to promote gains, reinforce healthy coping skills, and improve self-compassion. Time Stopped:: 10:00
--- NOTE | 2020-07-09 10:15 | BH.SGPN.GN ---
Behaviors/Verbalizations/Mental Status: []Client alert and oriented, casually dressed and groomed. Eye contact good. Motor activity appropriate. Speech within normal limits. Affect congruent, mood euthymic and anxious. Thoughts linear, logical, no signs of hallucinations or delusions. Client Response/Progress/Benefit: []Client responded well to session as client engaged throughout discussion and appeared to actively listen to peers when taking notes. Client defined anxiety as ?physical and emotional response to stress.? Client stated when she first recognized anxiety as a problem when the anxiety would impact other aspects of life. Client benefited from session as client learned how anxiety impacts physical symptoms, cognitive thinking, and safety behaviors. Client stated her physical symptoms of anxiety include clenching of teeth, lack of concentration, headaches, and nausea. Client stated her safety behaviors include thinking of worst case scenarios. Progress noted as client leaded group discussion and recognized the impacts anxiety has within her personal experiences. Client will discharge from [facility] today as client has made significant progress and no longer meets criteria for treatment. Narrative Note: []
--- NOTE | 2020-07-09 10:25 | BH.IGGP_ITS ---
Aftercare Plan - Demographics Treatment End Date:: 07/09/20 Psychiatrist:: Dionna Fam Psychiatrist Office #:: [id number] [facility]/IOP Therapist:: Sylvie Polanco Therapist Phone #:: [phone] - Medications Home Medications: Home Medications drospiren-e.estrad-l.mefol 3 mg-0.02 mg-0.451 mg(24)/0.451 mg(4)tablet 1 tab PO QDAY #84 tab 12/02/19 Sertraline HCl [Zoloft] 150 mg PO DAILY 05/21/20 busPIRone [Buspar] 5 mg PO BID 05/21/20 Calcium Carbonate/Vitamin D3 [Calcium 500 mg-Vit D3 600 Unit] 1 ea PO DAILY 05/22/20 Mirabegron [Myrbetriq] 50 mg PO DAILY 05/22/20 [place]-3 Fatty Acids/Fish Oil [Fish Oil 1,000 mg Capsule] 1 ea PO DAILY 05/22/20 Pantoprazole Sodium [Protonix] 40 mg PO DAILY 05/22/20 Psyllium Husk [Fiber] 0.52 gm PO DAILY 05/22/20 - Plan Details Progress/Aftercare Plan Details:: Melody has made significant strides since starting IOP as shown by her improved mood, improved boundaries, and increased ability to sit with uncomfortable feelings. When Melody started IOP she was experiencing significant anxiety and was struggling to get out of bed most days. Melody was struggling with anxious, health-related thoughts, isolation, lack of motivation, anhedonia, not functioning at her baseline, and physical pain. Now, Melody can catch and challenge distortions that reinforced anxiety and isolation, use healthy coping skills more easily, and she feels more confident in her abilities. Melody self-reports progress in the following areas: better boundaries at work, getting up and getting moving more often, being more social and active, not googling, reframing thoughts, and knowing her body bothers her, but not letting it take control. Melody was highly active in both group and individual therapy sessions. Melody contributed to group discussions, offered emotional support to peers, and consistently followed through with her goals. In individual sessions, Melody was receptive to feedback, consistent with homework, and willing to push herself despite anxiety. Melody?s high motivation, willingness to be uncomfortable, and joyful personality were likely the reason for her significant progress. Melody plans to attend [facility] aftercare as well as follow up with her outpatient providers. Strategies for Success:: 1. Opposite action! Continue to break that cycle of anxiety and depression by getting up and getting going. 2. Thought challenging! Remember to challenge distortions and reframe your thinking. 3. self-care! You deserve to take time for you, which includes taking breaks at work and setting boundaries. 4. Set reminders for journaling. This could look like sticky notes, calendar reminders, or having your encourage you. 5. Self-compassion! You are human and you will make mistake?BUT that doesn?t mean you are a failure or not good enough. Give yourself credit for all the wonderful things you do. 6. Unplug! Get in nature and practice that mindfulness. 7. Practicing deep breathing, yoga, and meditation 8. Practice positive self-talk and keep track of your wins. 9. Remember progress isn?t linear! You may have a setback or bump in the road, but that doesn?t mean you?ve lost all progress. 10. Slow down. Be aware and use opposite action to push yourself to slow the pace at work. - Appointments Appointments/Referrals to Other Services:: 1. Follow up with Echo Rodriguez at [place] [id number] for medication management. Next appointment is 08/05/20. 2. Follow up with Jennifer Schmid for weekly therapy. Next appointment is 07/22/20. 3. [facility] af tercare group starting on 07/23/20 from 2:00-3:30pm. Please arrive 10 minutes early for your first day.
--- NOTE | 2020-07-09 10:25 | BH.MDN ---
Multi-Disciplinary Note - Note 45-min Individual Time Started:: 09:30 Date: 07/09/20 Purpose of session/treatment goals addressed:: The purpose of this session was to review client's progress and review strategies that will promote mood stability and gains made in IOP. Another goal was to discuss discharge recommendations and process any current stressors. Eye Contact:: Good Motor Activity:: Appropriate Appearance:: Neat Speech:: Appropriate Mood:: Euthymic, Anxious Affect:: Congruent Thoughts:: Linear, Logical, No evidence of hallucinations/delusions noted Staff Interventions:: Therapist used open-ended questions to explore client's thoughts on personal progress. Therapist reviewed supports and coping skills with client to promote gains and prevent setbacks. Therapist discussed aftercare plan with client and used strengths-perspective to empower client on the goals client has accomplished. Therapist discussed the benefits of ongoing maintenance and use of daily coping skills. Therapist gave client a quote collage for closure. Client Response:: Client responded well to session, open to meeting with therapist. Client continues to have stressors at work and reports ongoing physical discomfort, which client is getting testing done for. However, client stated ?the biggest progress for me is knowing my body is bothering me and not letting it take control of my day.? Client reports she no longer allows her anxiety to lead to isolation or avoidance. Client has been practicing thought challenging, self-care, opposite action, deep breathing, and boundary setting. Client shared she still has moments at work ?where I feel like I?m going 100 miles per hour? but client states feeling more confident in her ability to manage anxiety. Client shared she no longer isolates, lays in bed to avoid, or googles her health symptoms. Client has also been able to return to work in person and has been more social with supports. Client plans to continue working on her mental health through outpatient counseling, using self-care, boundary setting, and attending IOP aftercare. Risks/Concerns:: Client denies any suicidal ideations, plan, or intent as of 07/09/20. Progress Toward Goals/Plan:: Client has made significant progress while in IOP tx AEB her improved functioning, 73% reduction of overall symptoms, and self-report of increased ability to cope with anxiety and depression. Client has accomplished her tx goals and was consistent with her use of coping skills in IOP. Client will discharge from [facility] as she no longer meets criteria for IOP level of care. Time Stopped:: 10:13
--- NOTE | 2020-07-09 10:48 | BH.DS_ITS ---
Discharge Summary - Demographics Date of Admission:: 05/18/20 Discharge Date: 07/09/20 Presenting Problems at Admission:: Client is a 39-year-old female with a history of TANYA and PTSD. Client was referred to [facility] by her outpatient psychiatric rn due to significant anxiety which was interfering with client's daily functioning. At admission, client reported being in complete panic from the moment she wakes up. Client also reported feeling paralyzed by anxiety and fear which resulted in client not going to work for a week prior to admission. Client had been unable to function at her baseline or complete daily responsibilities due to mental health decompensation. In 2013, client experienced significant complications while which traumatized client and caused medical anxiety. Prior to admission, client had bladder pain that triggered her medical anxiety and trauma. Client endorsed ruminations that she had cancer, panic attacks, googling about her symptoms, and racing thoughts. Client also endorsed anhedonia, isolative behaviors, hopelessness, decreased appetite, decreased sleep, and lack of motivation at admission. Client's symptoms were impacting her social, occupational, and familial functioning. Discharge Diagnoses:: Illness anxiety disorder, care seeking type (F 45.21); major depressive disorder, recurrent, moderate; generalized anxiety disorder; PTSD Reason for Discharge:: Client has demonstrated significant progress AEB a 73% overall decrease in symptoms as well as a significant improvement in functioning. Client no longer meets criteria for [facility] level of care and will transition to outpatient counseling and [facility] aftercare. - Treatment Progress During Treatment & Response: Client responded well to treatment and demonstrated significant progress AEB reduction in DSM-5 scores and high engagement in group and individual sessions. Client?s depression decreased by 86%, anxiety decreased by 75%, and her overall symptoms decreased by 73%. Client reported consistently using healthy coping skills including self-care, yoga, self-talk, calming skills, mindfulness, boundary setting, opposite action, and thought challenging. Client was an active group member who gave insight to discussion, feedback to peers, and connected the topics to her daily life. Client was highly engaged in her individual sessions and was consistent with homework and skill utilization outside of group. At discharge, client was going to work in person, no longer googling about her physical health, improved appetite and sleep, and was reporting improved energy on a consistent basis. Client's consistent application of skills was likely the reason for her reduction in symptoms and ability to maintain progress. Client will follow up with outpatient providers and IOP aftercare group. Issues Still to be Addressed:: Client can benefit from ongoing therapy to further reduce negative thoughts, increase boundary setting skills, and further improve confidence. Client can also benefit from continuing to be social, sit with uncomfortable feelings, and making self-care a priority. Discharge Recommendations/Instructions:: Client is recommended to continue seeing her outpatient providers to promote gains. Client will see Echo Rodriguez at [place] [id number] on 08/05/20 for medication management. Client also sees Jennifer Schmid for weekly therapy and her next appointment is on 07/22/20. Lastly, client will begin IOP aftercare on 07/30/20. Discharge Handout: Complete Discharge Handout with client on aftercare options and continuity of care.
--- NOTE | 2020-07-09 11:15 | BH.SGPN.GN ---
Behaviors/Verbalizations/Mental Status: []Client alert and oriented, casually dressed and groomed. Eye contact good. Motor activity appropriate. Speech within normal limits. Affect congruent, mood euthymic. Thoughts linear, logical, no signs of hallucinations or delusions. Client Response/Progress/Benefit: []Client was an engaged participant in group discussion AEB providing input throughout. Client reported safety behaviors she engages in includes: don't reaching out to others and in the past would take a sleeping pill so didn't have to deal with anxious thoughts. Attentive during psychoeducation on anxiety management skills. The group practiced belly breathing. Client identified wanting to practice 5 senses at least 3 times in the next week. Appeared to benefit from practicing in the moment coping skills and identifying personal mindfulness activities to manage anxiety independently. Client has made significant progress since starting IOP and will discharge from program today. Narrative Note: []
== END 2020-07-09 14:00 | disposition home or self-care (01) ==
LOC: BHIOP 09:00
PROVIDERS: PCP Family Medicine; Referring Provider Psychiatry & Neurology Psychiatry; Visit Provider Psychiatry & Neurology Psychiatry
DX: F33.1 Major depressive disorder, recurrent, moderate (principal); F41.8 Other specified anxiety disorders; F43.10 Post-traumatic stress disorder, unspecified; Z79.899 Other long term (current) drug therapy
CPT/HCPCS: H0035; 90832; 90834; 90853

== ENCOUNTER 2020-07-30 14:00 | Outpatient (RCR) | payer OTHER, SELFPAY ==
[2020-07-20 13:14] VITALS: BMI 20.1
--- NOTE | 2020-07-30 14:00 | BH.SGPN.GN ---
Behaviors/Verbalizations/Mental Status: []Client alert and oriented, casual appearance. Eye contact good. Motor activity appropriate. Speech within normal limits. Affect congruent, mood anxious. Thoughts linear, logical, no signs of hallucinations or delusions. Client Response/Progress/Benefit: []Pt responded well to session AEB pt openly sharing thoughts and feelings and completing worksheet. Pt stated she struggled last week after discharging from [facility]. Pt reported she reverted back to old coping skill of googling her physical symptoms which increased her health anxiety. Pt stated she notes progress within herself because although a part of her thinks the pain is real another part of her recognizes it is likely from her health anxiety. pt stated she has been going to work as scheduled which is going well. Pt reported she is still going to therapy and now is starting to see the benefit of EMDR. Pt responded well to group discussion about self-care. Pt identified her self-care plan for the week is to: weed garden, find hobby, volunteer for cause, spend time with friends, take time for lunch at work and eat healthy. Pt's first day in aftercare. Seemed to benefit from creating self-care plan for week. Pt to continue aftercare to continue use of healthy coping, challenge distorted thoughts and prevent decompensation. Narrative Note: []
--- NOTE | 2020-07-30 15:14 | BH.MTP ---
Master Treatment Plan - Patient Information Program Physician:: Dr. Dionna Fam Primary Therapist:: Sylvie PARISH - Psychiatric Diagnoses Psychiatric Diagnoses:: Illness anxiety disorder, care seeking type (F 45.21); major depressive disorder, recurrent, moderate; generalized anxiety disorder; PTSD Diagnosis Code(s):: F 45.21 - Estimated LOS Estimated LOS (in weeks):: 10 Problem/Goal #1 - Problem/Goal #1 Stated Goal:: client will maintain or see a reduction in symptoms AEB client score on the DSM 5 cross-cutting measure and improve client's daily functioning. - Objectives Objective #1 Stated Objective: Client will continue to consistently apply healthy coping skills to maintain progress made in IOP tx. Interventions: Through group therapy, client will review warning signs and triggers as well as healthy coping skills learned in IOP tx to successfully maintain gains while transitioning into outpatient therapy. Discharge Criteria: Client will have accomplished this goal when client's score on the DSM-5 cross-cutting measure has either maintained or reduced over a 12 week period. Target Date: 10/08/20 Review Date: 08/27/20 Status: open Objective #2 Stated Objective: Client will learn and utilize 2-3 maintenance strategies to prevent decompensation. Interventions: Through group therapy, client will be provided with education on healthy maintenance behaviors, relapse prevention techniques, and healthy coping strategies. Discharge Criteria: Client will have accomplised this goal when can report using at least 2 maintenance skills to prevent decompensation. Target Date: 10/08/20 Review Date: 08/27/20 Status: open
--- NOTE | 2020-08-06 16:23 | BH.DS ---
Discharge Summary - Demographics Date of Admission:: 07/30/20 Discharge Date: 08/06/20 Presenting Problems at Admission:: Client discharged from IOP tx and transitions to IOP aftercare to maintain gains client made in IOP. At admission to [facility] aftercare, client?s mood and functioning had improved, but she continued to experience symptoms of health anxiety, ruminations, and worry about maintaining progress. Client was also getting the COVID vaccine prior to starting aftercare, which could be a trigger for health anxiety. Discharge Diagnoses:: Illness anxiety disorder, care seeking type (F 45.21); major depressive disorder, recurrent, moderate; generalized anxiety disorder; PTSD Reason for Discharge:: Client voluntarily discharged from [facility] aftercare due to conflicts in client's work schedule. Client will continue with traditional outpatient counseling. - Treatment Progress During Treatment & Response: Client attended [facility] aftercare one session, so she did not get to work on her aftercare tx goals. Client had made significant progress while in IOP and continues to practice healthy coping skills. Issues Still to be Addressed:: Client can continue to work on managing her health anxiety, maintaining self-care, practicing positive self-talk, continuing EMDR, and setting healthy boundaries. Discharge Recommendations/Instructions:: Client will continue seeing her outpatient providers to promote mood stability. Client sees Echo Rodriguez for medication management and Jennifer Schmid for individual therapy. Discharge Handout: Complete Discharge Handout with client on aftercare options and continuity of care.
== END 2020-08-06 02:00 | disposition home or self-care (01) ==
LOC: BHOG 14:00
PROVIDERS: PCP Family Medicine; Referring Provider Psychiatry & Neurology Psychiatry; Visit Provider Psychiatry & Neurology Psychiatry
DX: F45.21 Hypochondriasis (principal); F33.1 Major depressive disorder, recurrent, moderate; F41.1 Generalized anxiety disorder; F43.10 Post-traumatic stress disorder, unspecified
CPT/HCPCS: 90853

== ENCOUNTER → 2020-12-28 14:47 | Outpatient (CLI) | payer OTHER, SELFPAY ==
[2019-12-02 11:15] VITALS: BMI 21.2
--- NOTE | 2020-12-28 14:56 | BI_ITS ---
MAMMOGRAPHY - BILATERAL SCREENING REASON FOR EXAM: Female, 40 years old. Routine annual screening examination. PERTINENT HISTORY: Grandmother with breast cancer. TECHNIQUE: Digital bilateral breast clarence (3D mammographic acquisition) in the CC and MLO projections. 2-D mediolateral oblique (MLO) and craniocaudad (CC) views of both breasts were obtained. CAD: Full Field Digital Mammography with Computer Added Detection was performed. COMPARISON: Comparison is made with prior study dated 12/24/2019. FINDINGS: Breast Composition: The breasts are extremely dense, which lowers the sensitivity of mammography. There are no dominant masses or suspicious calcifications. No other significant abnormalities are identified. There has been no significant change since the prior study. BI/SCRN MAMM (CAD)W/CLARENCE BILAT IMPRESSION: Stable bilateral screening mammogram. Yearly follow-up mammogram recommended. (A) ASSESSMENT CATEGORY: BIRADS Category 1: Negative. A letter regarding these results will be sent to the patient by the facility within 30 days. Approximately 10% of breast cancers are not detected by mammography. A normal mammogram should not delay biopsy of a clinically suspicious abnormality. [id number] Electronically Signed: Jean-Claude Graham MD at 15:32 EDT , Service support ,
== END ==
PROVIDERS: PCP Family Medicine; Referring Provider Nurse Practitioner Women's Health; Visit Provider Nurse Practitioner Women's Health
DX: Z12.31 Encounter for screening mammogram for malignant neoplasm of breast (principal)
CPT/HCPCS: 77063; 77067

== ENCOUNTER 2021-05-28 08:30 | Outpatient (RCR) | payer OTHER, SELFPAY ==
--- NOTE | 2021-05-28 09:05 | BH.SGPN.GN ---
Behaviors/Verbalizations/Mental Status: [] Eye contact is good. Motor activity is restless. Appearance is casual. Speech is Appropriate. Mood is anxious. Affect is congruent. Thoughts are linear and logical. No evidence of psychosis. Reviewed daily check in sheet and no reports of suicidal ideations or intent. Client Response/Progress/Benefit: [] Pt was an active participant in group discussion. Attentive. Pt was visibly anxious AEB by hand trembling. This was pt's first day in [facility] and she shared that she is here because of significant health anxiety. My thinking will lead to being physically sick. Panic attacks daily. Obsessive and intrusive thoughts which are impacting her daily functioning. Her mental health win was eating 3x yesterday. Poor appetite and weight loss due to her anxiety. She has gotten back into bad habits of googling her symptoms and seeking reassurance on the internet which usually leads to more anxiety and fear. No progress as this was first session. Benefited from group support and feedback. Peers were empathic and related to some of her struggles. Will continue in [facility] to maintain safety, prevent decompensation, improve functioning, and decrease intrusive thoughts. Narrative Note: []
--- NOTE | 2021-05-28 10:06 | BH.SGPN.GN ---
Behaviors/Verbalizations/Mental Status: []Client alert and oriented, casually dressed and groomed. Eye contact good. Motor activity appropriate. Speech within normal limits. Affect constricted, mood dysthymic and anxious. Thoughts linear, logical, no signs of hallucinations or delusions. Client Response/Progress/Benefit: []Client engaged during session AEB actively contributing insight and completing worksheet. Connected with discussion on crisis and how coping with external crises by using unhealthy coping skills could result in a personal crisis. Group reflected on the importance of having awareness of personal warning signs to prevent reaching crisis point. Group identified potential warning signs for crisis and client completed the personal warning signs worksheet. Client identified personal crisis warning signs to include: racing thoughts and excessive worry, increased anxiety around groups of people, and increased irritability. Client benefited by increasing awareness of what leads to crisis and personal warning signs. First day of IOP tx. Client will continue IOP tx to prevent decompensation, decrease health anxiety symptoms improving functioning, and reduce isolation. Narrative Note: []
--- NOTE | 2021-05-28 16:21 | BH.COMM_ITS ---
Communication Note - Communication with Client Communication Note: Met with patient to complete initial paperwork and complete an updated intake assessment. Completed [place] Suicide screening low risk, but more passive SI reported than previous IOP admission. Admits to having passive suicidal ideations with thoughts of hanging herself or wrecking her car. Denies she would ever act on these thoughts because of her and family. No hx of suicide attempts. Denied active SI, plan, or intent this AM and in the last month. Reviewed case with Dr. Poole with plan to admit to [facility] with dx of Illness anxiety disorder, care seeking type F 45.21.
--- NOTE | 2021-05-31 08:21 | BH.DS ---
Discharge Summary - Demographics Date of Admission:: 05/28/21 Discharge Date: 05/31/21 Presenting Problems at Admission:: Client is a 40-year-old female with a history of illness anxiety, depression, TANYA, and PTSD. client was self-referred to [facility] and successfully completed IOP tx last year. Client returned to [facility] due to decompensation over the past few months. At admission, client reported being in complete panic from the moment she wakes up. Client reports she had a health scare several months ago and this triggered client?s illness anxiety. Client reports she has been googling her symptoms and ?whatever I google I end up getting.? Client reports constant worry about her health, no appetite, poor concentration, low motivation and energy, shaking, isolative behaviors, and obsessive thoughts. Client reports she had been doing ?really well? following her discharge from [facility], and client feels depressed about her decompensation. Client reports she is not functioning at her baseline at home and at work she struggles to get through the day without having panic attacks. Client also reports having thoughts of not wanting to wake up and passive SI. Client denies any active SI, plan, or intent. Client?s symptoms are significantly impacting her daily functioning. Discharge Diagnoses:: Illness anxiety disorder, care seeking type (F 45.21); major depressive disorder, recurrent, moderate; generalized anxiety disorder; PTSD Reason for Discharge:: Pt called to voluntarily discharge from [facility] level of care as pt reports belief outpatient counseling, psychiatry, and physical therapy will be enough for her at this time. Pt encouraged to reach out to [facility] staff should her symptoms get worse. - Treatment Progress During Treatment & Response: No progress made due to pt attending one day of treatment. Issues Still to be Addressed:: Pt can benefit from ongoing counseling and medication management to improve overall functioning that is being impaired by anxiety symptoms. Pt endorsed intrusive, health anxiety thoughts, reassurance seeking and researching symptoms online, and constant panic mode at time of intake. Pt also reported isolation, low energy, and poor appetite due to symptoms. There is a concern that traditional outpatient counseling will not be a high enough level of care for pt due to symptoms presenting at intake and pt's report of decompensation over the past few months. Discharge Recommendations/Instructions:: Pt encouraged to continue IOP tx, but pt decline at this time. Pt will continue seeing her outpatient providers at [id number]. Pt sees her counselor weekly and recently had an appointment with her grape pruner, Echo Rodriguez. Discharge Handout: Complete Discharge Handout with client on aftercare options and continuity of care.
== END 2021-06-01 07:51 | disposition home or self-care (01) ==
LOC: BHIOP 08:30
PROVIDERS: PCP Family Medicine; Visit Provider Psychiatry & Neurology Psychiatry
DX: F45.21 Hypochondriasis (principal); F33.2 Major depressive disorder, recurrent severe without psychotic features; F41.8 Other specified anxiety disorders; F43.10 Post-traumatic stress disorder, unspecified
CPT/HCPCS: S9480; 90853

== ENCOUNTER → 2021-12-30 | Outpatient (CLI) | payer OTHER, SELFPAY ==
--- NOTE | 2021-12-30 15:57 | BI_ITS ---
MAMMOGRAPHY - BILATERAL SCREENING REASON FOR EXAM: Female, 41 years old. Routine annual screening examination. PERTINENT HISTORY: Grandmother with breast cancer. TECHNIQUE: Digital bilateral breast clarence (3D mammographic acquisition) in the CC and MLO projections. 2-D mediolateral oblique (MLO) and craniocaudad (CC) views of both breasts were obtained. CAD: Full Field Digital Mammography with Computer Added Detection was performed. COMPARISON: Comparison is made with prior study 12/28/2020 and 12/24/2019. FINDINGS: Breast Composition: The breasts are extremely dense, which lowers the sensitivity of mammography. There are no dominant masses or suspicious calcifications. No other significant abnormalities are identified. There has been no significant change since the prior study. BI/SCRN MAMM (CAD)W/CLARENCE BILAT IMPRESSION: Stable bilateral screening mammogram. Yearly follow-up mammogram recommended. (A) ASSESSMENT CATEGORY: BIRADS Category 1: Negative. A letter regarding these results will be sent to the patient by the facility within 30 days. Approximately 10% of breast cancers are not detected by mammography. A normal mammogram should not delay biopsy of a clinically suspicious abnormality. [id number] Electronically Signed: Jean-Claude Graham MD at 8:33 EDT ,
== END | disposition home or self-care (01) ==
LOC: OPBI 15:56
PROVIDERS: PCP Family Medicine; Referring Provider Obstetrics & Gynecology; Visit Provider Obstetrics & Gynecology
DX: Z12.31 Encounter for screening mammogram for malignant neoplasm of breast (principal)
CPT/HCPCS: 77063; 77067

== ENCOUNTER → 2022-06-22 | Outpatient (CLI) | payer OTHER, SELFPAY ==
[2022-06-22 17:33] LABS: Follicle Stimulating Hormone 0.3 mIU/mL; Luteinizing Hormone < 0.2 mIU/mL
[2022-06-24 08:30] LABS: DHEA Sulfate 64.3 ug/dL (57.3-279.2)
[2022-07-01 21:07] LABS: HPV Genotype 16, Aptima Negative (Negative)
[2022-07-01 21:37] LABS: HPV APTIMA, High Risk Positive (Negative); HPV Genotype 18,45 Aptima Negative (Negative)
== END | disposition home or self-care (01) ==
LOC: LAB 15:59
PROVIDERS: PCP Family Medicine; Referring Provider Obstetrics & Gynecology; Visit Provider Obstetrics & Gynecology
DX: N95.1 Menopausal and female climacteric states (principal); Z12.4 Encounter for screening for malignant neoplasm of cervix
CPT/HCPCS: 36415; 82627; 82670; 83001; 83002; 87624; 88175; 82626; G0145

== ENCOUNTER → 2022-06-29 | Outpatient (CLI) | payer OTHER, SELFPAY ==
--- NOTE | 2022-06-29 16:28 | US_ITS ---
STUDY: ULTRASOUND OF THE FEMALE PELVIS - COMPLETE REASON FOR EXAM: Female, 41 years old. Pelvic pain LMP: 06/29/2022 TECHNIQUE: Transabdominal and Transvaginal TECHNICAL QUALITY: Adequate. COMPARISON: None. FINDINGS: The uterus is retroverted and is retroflexed The uterus measures 7.8 x 3.8 x 3.6 cm. Normal uterine cervix. The endometrium measures 4.7 mm in thickness, and is hyperechoic. There is no demonstrated endometrial mass, there is fluid in the endometrial canal, patient currently menstruating. There is no demonstrated myometrial mass. I.U.D. - The patient does not have an I.U.D. The right ovary is visualized. The right ovary measures 2.9 x 1.2 x 1.4 cm. There is no right ovarian cyst or ovarian mass. There is no visualized right adnexal mass or complex lesion. There is normal arterial and normal venous vascularity. The left ovary is visualized. The left ovary measures 2.2 x 2.1 x 0.9 cm. There is no left ovarian cyst or ovarian mass. There is no visualized left adnexal mass or complex lesion. There is normal arterial and normal venous vascularity. There is no fluid in the cul-de-sac. The bladder is sonographically normal US/Pelvic (Non ) IMPRESSION: No suspicious sonographic findings Electronically Signed: Kelton Lo MD at 11:21 EDT ,
== END | disposition home or self-care (01) ==
LOC: US 16:26
PROVIDERS: PCP Family Medicine; Referring Provider Obstetrics & Gynecology; Visit Provider Obstetrics & Gynecology
DX: R10.2 Pelvic and perineal pain (principal)
CPT/HCPCS: 76830; 76856; 93976

== ENCOUNTER 2022-09-13 11:47 | Day surgery (SDC) | payer OTHER, SELFPAY ==
[2022-09-13] VITALS (8 sets, daily range): BP systolic 113–137; BP diastolic 76–87; PULSE 82–132; RESP 16–18; TEMP 36.6–36.7; O2SAT 98–100; BMI 18.9
--- NOTE | 2022-09-13 | FALS_PTH ---
PATIENT: THAD CULVER [place] [facility] [id number] AGE/SX: 41/F ROOM: RE09/13/[address]: Dr. Yee Bazan DO : 1980 BED: DIS: 09/13/2022 SPEC #: [id number] RECD: 09/13/22 15:26 STATUS: DANA REJennifer #: [id number] JE: 09/13/22 00:[address]: Yee Bazan DEPT: SURGICAL PATHOLOGY RECD BY: Manjit Siegel ENTERED: 09/14/22 09:35 SP TYPE: FALL TUBES OTHR DR: Dr. Javier Mckeon MD Tissues: Fallopian tube Procedures: Surgery Specimen Level II HEADER OPERATION: Laparoscopic salpingectomy, colposcopy, lysis of adhesions PRE-OP DIAGNOSIS: HPV, contraceptive management, pelvic pain TISSUE SUBMITTED: Bilateral fallopian tubes MICROSCOPIC DIAGNOSIS Bilateral fallopian tubes, salpingectomy: Bilateral fallopian tubes, no pathologic diagnosis. DANIELLE:guadalupe 09/15/2022 MICROSCOPIC DESCRIPTION Slides are reviewed. GROSS DESCRIPTION Received in fixative is one container labeled with the patient's name and designated bilateral fallopian tubes. The specimen consists of bilateral fallopian tubes including fimbrial ends measuring 7.0 cm in length and 0.5 cm in diameter and 5.5 cm in length and 0.6 cm in diameter. The fallopian tubes are not identified as right or left. Sections reveal unremarkable cut surfaces. Immigration Coordinator sections are submitted in two cassettes with each cassette containing one fallopian tube. / DANIELLE:guadalupe 09/14/2022 TC:4 CPT: 82295 x2
--- NOTE | 2022-09-13 12:37 | HP.PCM_ITS ---
History and Physical ntake Vital Signs ? 08/25/2314:14 08/25/2314:14 Height 5 ft 8 in 5 ft 8 in Weight: 128 lb 4 oz ? BMI 19.5 ? BP 130/88 H ? 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 Required: No Is patient in pain?: No Allergies codeine Adverse Reaction (Verified 08/25/22 15:13) Itching Medications trazodone 50 mg tablet 50 mg PO QHS PRN 07/20/20 [History Confirmed 08/25/22] cholecalciferol (vitamin D3) 25 mcg/drop (1,000 unit/drop) oral drops 25 mcg PO DAILY 06/22/22 [History Confirmed 08/25/22] drospirenone 3 mg-ethinyl estradiol 0.03 mg tablet (Ocella) 1 tab PO DAILY #84 tabs 06/22/22 [Rx Confirmed 08/25/22] duloxetine 30 mg capsule,delayed release (Cymbalta) 30 mg PO DAILY 06/22/22 [History Confirmed 08/25/22] magnesium oxide 250 mg PO DAILY 06/22/22 [History Confirmed 08/25/22] Post menopausal: No Patient : No PFSH Medical History? Abnormal Pap smear of cervix Endometriosis Generalized anxiety disorder Illness anxiety disorder Major depressive disorder, recurrent, moderate PTSD (post-traumatic stress disorder) TMJ (dislocation of temporomandibular joint) Surgical History? enflamed pelvic floor History of esophagogastroduodenoscopy (EGD) S/P laparoscopy s/p left hand surgery Family History? Father Prostate cancerMother HypertensionGrandmother CancerGrandfather Diabetes CVA (cerebral vascular accident) Emphysema lung Social History? Smoking Status:? Never smoker alcohol intake:? current details:? occasionally substance use type:? does not use caffeine:? Yes what type of physical activity do you participate in:? none seatbelt use:? always do you feel safe at home:? Yes additional social history:? - [employer] Patient works for [employer] in [place] HPI BS Details: THAD CULVER is a 41 year old who presents for preop exam for diagnostic laparoscopy, bilateral salpingectomy, possible fulguration of endometriosis and colposcopy of cervix for the diagnosis of pelvic pain, desire for permanent sterilization, and for HPV + pap smear. History ? ? ? 1 ? Elective abortions ? ? ? 1 Hx Para ? ? ? 0 ? Spontaneous abortions ? Hx # Term Pregnancies ? Ectopic pregnancies ? Hx # Pregnancies ? Multiple births ? # of living children ? ROS Const ROS Unobtainable: All systems reviewed & are unremarkable except as noted in H Resp Resp: Reports system reviewed and no additional complaints, except as documented; Denies cough GI GI: Reports as per HPI Psych Psych: Reports system reviewed and no additional complaints, except as documented Exam Const General: cooperative, healthy appearing, comfortable and no acute distress Resp Effort & Inspection: normal respiratory effort Skin General: no rashes or lesions noted Psych Appearance: grossly normal Speech and Movement: speech and movement normal Coding Level of Care Code Off vis,est,level 4 Diagnoses 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 Z30.9 Pelvic pain? R10.2 Assessment and Plan Assessment and Plan (1) HPV in female: ?Status:?Acute ?Comment: colposcopy during surgical procedure (2) Contraceptive management: ?Status:?Acute (3) Pelvic pain: ?Status:?Acute Plan After discussing the patient's diagnosis and treatment plan options, patient wishes to proceed with surgical management.? I have discussed with the patient the risks, benefits, and alternatives of the procedure which include but are not limited to risks of anesthesia, bleeding, infection, possible damage to bowel, bladder, or surrounding vasculature which could lead to additional surgery to evaluate any complications.? Patient agrees to procedure and wishes to proceed.? ACOG/uptodate references given for additional information regarding procedure.? plan for Diagnostic laparoscopy with possible fulguration of endometriosis, bilateral salpingectomy, and colposcopy.? UPDATE- I have seen the patient and performed any clinically relevant updates to the history and physical exam. Dionna Moses MD
[2022-09-13 12:45] LABS: Hematocrit 42.3 % (37-47); Hemoglobin 13.8 g/dL (12.0-15.0); Mean Corp Hgb Conc 32.6 g/dL (32-36); Mean Corpuscular Hgb 29.2 pg (27.0-32.0); Mean Corpuscular Volume 89.4 fL (81-99); Platelet Count 181 K/mm3 (150-450); RBC Distribution Width CV 12.8 % (11.6-14.6); RBC Distribution Width SD 42.2 fl (35.1-43.9); Red Blood Count 4.73 M/mm3 (4.2-5.4)
[2022-09-13 12:48] LABS: Internal QC Validated? YES +Cl - CLEAR BKGD; Pregnancy, Urine Negative Negative
[2022-09-13 12:57] LABS: Prothrombin Time (Protime)PT. 13.5 SECONDS (11.7-14.9)
[2022-09-13 13:00] LABS: AST(SGOT) 21 U/L (15-37); Alanine Aminotransfer ALT/SGPT 26 U/L (13-56); Albumin, Serum 3.8 g/dL (3.2-5.0); Alkaline Phosphatase 58 U/L (45-117); Bilirubin, Direct 0.12 mg/dL (0.00-0.30); Globulin 3.2 g/dL (2.2-4.2)
[2022-09-13] MEDS: Lactated Ringers 1,000 ML 15 ML IV (13:17)
[2022-09-13] MEDS: Bupivacaine 0.25% 30 ML Vial (14:06)
[2022-09-13] MEDS: Iodine/Potassium Iodide 14ML Bottle 1 DRP TOPICAL (14:06)
--- NOTE | 2022-09-13 15:01 | PCM.OPRPT ---
Problems Associated Problem List Diagnoses (1) Status post bilateral salpingectomy: (2) Pelvic pain: (3) HPV in female: Report of Operation Date of Procedure: 09/13/22 Pre-Operative Diagnosis: see problem list Post-Operative Diagnosis: same Surgery/Procedure Performed:: laparoscopic bilateral salpingectomy adhesiolysis left sigmoid colon left ovarian cystectomy colposcopy Description of Surgical Findings:: nl uterus tubes left hemorrhagic ovarian cyst present Surgeon: Dionna Moses supervisory civil engineer: Graham Grewal Type of Anesthesia: General and Local Specimen's removed: tubes Drains: none Estimated Blood Loss (mL): 50 Fluids Replaced: crystalloid Description of Procedure: Patient was taken in the operating room and was placed under general anesthesia was prepped and draped in normal sterile fashion in the dorsal lithotomy position. Bladder was drained of clear urine and SCDs were on preoperatively. Uterus was sounded and it was difficult to completely ascertain an actual depth and therefore the insertion of the uterine manipulator was aborted and the sponge stick was placed in the vagina. Attention was then paid to the abdominal portion of the procedure and the umbilicus was elevated with towel clamps and injected with Marcaine and after a 5 mm incision was made and the Veress needle was entered into the abdomen confirmed to be intra-abdominal with a low opening pressure of less than 5 mmHg. Abdomen was insufflated with CO2 gas and a 5 mm optical trocar was placed under direct visualization. A 5 mm port in the right and left lower quadrant was placed under direct visualization. Uterus was well visualized and bilateral fallopian tubes identified and bilateral tubes were elevated and transecting across the mesosalpinx and the attachment to the uterine corpus bilaterally the tubes were removed without complication. A left simple ovarian cyst was noted and incised crossed with the Enseal device and the spontaneously removed the hemorrhagic cyst which shelled out on its own without complication. Excellent hemostasis was noted. Fallopian tubes were removed through the lower port site without complication. Left sigmoid colon adhesions were noted which were taken down bluntly and with the Enseal device without complication. Liver and upper abdomen were visualized notably within normal limits and no other gross abnormalities were seen in the abdomen. All instruments removed from the abdomen after gas was desufflated. Port sites were closed with 3-0 Monocryl Steri's and op sites were applied. Cervical colposcopy was then performed by using the colposcope and placing Lugol's solution over the cervix no gross abnormalities were seen and therefore no biopsies were needed to be taken. Squamocolumnar junction was well visualized with no abnormality seen. All instruments removed from the vagina and patient was awoken and taken recovery in stable condition. Grafts/Implants Used: none Complications none Admit VTE Documentation VTE Present on Admission: No VTE Mechan Device Prophylaxis: SCD's Multi Select Codes Urinary/Genital Urinary/Genital CPT Codes: 00406 [place] + Bx + ECC and 70152 Laproscopic BS/O
--- NOTE | 2022-09-13 15:02 | DCINST_ITS ---
Discharge Instructions Diet Discharge Diet: No restrictions Activity Discharge Activity: Return to Normal Activity, May Drive (when pain free) and May Shower May resume sexual activity in: 1 week Weight Bearing Status: Full weight bearing Lifting Restrictions: 30 lbs for 2 weeks Dressing / Incision Call your doctor if your incision/area has: Continuous Slow Oozing, Sudden Increased Bleeding, Increased Pain/ Swelling, Increased Redness and Foul Smelling Discharge Call your doctor if you observe: Fever of 101 or Higher, Using more than 1 pad per hour, Shortness of breath, Chest pain and Uncontrolled pain Suture Line Care: Avoid Pulling/Pushing and Avoid Pinching/Bending Remove Dressing in: 1 week (if present) Cleanse incision/area with: Soap & Water and Keep Dressing Clean & Dry Follow Up Care Please Follow Up With: Dionna Moses MD When: Call to make an appointment with your doctor for a postop visit in 2 weeks Test Results: Test results from this visit will be discussed in further detail at your follow- up appointment, if applicable. Discharge Plan Admission Attending Provider: Yee Bazan Primary Care Provider: Javier Mckeon Discharge Orders/Prescriptions Prescriptions: New oxycodone-acetaminophen [Percocet] 5-325 mg tablet 1 tab PO Q6H PRN (Reason: pain) 7 Days Qty: 10 0RF naproxen [naproxen] 500 mg tablet 500 mg PO BID PRN PRN (Reason: Pain) Qty: 30 1RF No Action trazodone 50 mg tablet 50 mg PO QHS PRN (Reason: Sleep) duloxetine [Cymbalta] 30 mg capsule,delayed release(DR/EC) 30 mg PO DAILY magnesium oxide 250 mg magnesium tablet 250 mg PO DAILY multivitamin Capsule 1 cap PO DAILY fiber Capsule 1 cap PO DAILY Referrals / Follow Up: Javier Mckeon MD [Primary Care Provider] - Disposition Disposition (needs filled in before D/C Order can be placed): Home, Self Care
== END 2022-09-13 16:55 | disposition home or self-care (01) ==
LOC: SDC 11:49 → AC 11:52
PROVIDERS: Anesthesiology; Obstetrics & Gynecology; PCP Family Medicine; Referring Provider Obstetrics & Gynecology; Visit Provider Obstetrics & Gynecology
PROC: (CPT 58661; principal; 2022-09-13 13:30)
DX: Z30.2 Encounter for sterilization (principal); N83.202 Unspecified ovarian cyst, left side; R10.2 Pelvic and perineal pain; Z79.899 Other long term (current) drug therapy
CPT/HCPCS: 58661; 58662; 57452; 00840; 80076; 81025; 85027; 85610; 85730; 86850; 86900; 86901; 88302; J7120; C1760; J2405

== ENCOUNTER → 2022-09-28 | Outpatient (CLI) | payer OTHER, SELFPAY | END | disposition home or self-care (01) | PROVIDERS: PCP Family Medicine; Visit Provider Obstetrics & Gynecology | DX: N89.8 Other specified noninflammatory disorders of vagina (principal) | CPT/HCPCS: 87070; 87205 ==

== ENCOUNTER → 2023-01-02 | Outpatient (CLI) | payer OTHER, SELFPAY ==
--- NOTE | 2023-01-02 15:59 | BI_ITS ---
MAMMOGRAPHY - BILATERAL SCREENING REASON FOR EXAM: Female, 42 years old. Routine annual screening examination. PERTINENT HISTORY: Grandmother with breast cancer. TECHNIQUE: Digital bilateral breast clarence (3D mammographic acquisition) in the CC and MLO projections. 2-D mediolateral oblique (MLO) and craniocaudad (CC) views of both breasts were obtained. CAD: Full Field Digital Mammography with Computer Added Detection was performed. COMPARISON: Comparison is made with prior examination dated December 30, 2021 and December 28, 2020. FINDINGS: Breast Composition: The breasts are extremely dense, which lowers the sensitivity of mammography. There are no dominant masses or suspicious calcifications. No other significant abnormalities are identified. There has been no significant change since the prior study. BI/SCRN MAMM (CAD)W/CLARENCE BILAT IMPRESSION: Stable bilateral screening mammogram. Yearly follow-up mammogram recommended. (A) ASSESSMENT CATEGORY: BIRADS Category 1: Negative. A letter regarding these results will be sent to the patient by the facility within 30 days. Approximately 10% of breast cancers are not detected by mammography. A normal mammogram should not delay biopsy of a clinically suspicious abnormality. [id number] Electronically Signed: Jean-Claude Graham MD at 8:31 EDT ,
== END | disposition home or self-care (01) ==
LOC: OPBI 15:59
PROVIDERS: PCP Family Medicine; Referring Provider Obstetrics & Gynecology; Visit Provider Obstetrics & Gynecology
DX: Z12.31 Encounter for screening mammogram for malignant neoplasm of breast (principal)
CPT/HCPCS: 77063; 77067

== ENCOUNTER → 2023-03-22 | Outpatient (CLI) | payer OTHER, SELFPAY | END | disposition home or self-care (01) | LOC: LABSPEC 16:03 | PROVIDERS: PCP Family Medicine; Visit Provider Nurse Practitioner Women's Health | DX: N89.8 Other specified noninflammatory disorders of vagina (principal) | CPT/HCPCS: 87070; 87205 ==

== ENCOUNTER → 2023-07-03 | Outpatient (CLI) | payer OTHER, SELFPAY ==
[2023-07-07 13:08] LABS: HPV APTIMA, High Risk Negative (Negative)
== END | disposition home or self-care (01) ==
PROVIDERS: PCP Family Medicine; Visit Provider Obstetrics & Gynecology
DX: Z12.4 Encounter for screening for malignant neoplasm of cervix (principal)
CPT/HCPCS: 87624; 88175; G0145

== ENCOUNTER → 2024-01-04 | Outpatient (CLI) | payer OTHER, SELFPAY ==
--- NOTE | 2024-01-04 16:20 | BI_ITS ---
MAMMOGRAPHY - BILATERAL SCREENING REASON FOR EXAM: Female, 43 years old. Routine annual screening examination. PERTINENT HISTORY: Grandmother with breast cancer. TECHNIQUE: Digital bilateral breast clarence (3D mammographic acquisition) in the CC and MLO projections. 2-D mediolateral oblique (MLO) and craniocaudad (CC) views of both breasts were obtained. CAD: Full Field Digital Mammography with Computer Added Detection was performed. COMPARISON: Comparison is made with prior study dated January 02, 2023 and December 30, 2021. FINDINGS: Breast Composition: The breasts are extremely dense, which lowers the sensitivity of mammography. There are no dominant masses or suspicious calcifications. No other significant abnormalities are identified. There has been no significant change since the prior study. BI/SCRN MAMM (CAD)W/CLARENCE BILAT IMPRESSION: Stable bilateral screening mammogram. Yearly follow-up mammogram recommended. (A) ASSESSMENT CATEGORY: BIRADS Category 1: Negative. A letter regarding these results will be sent to the patient by the facility within 30 days. Approximately 10% of breast cancers are not detected by mammography. A normal mammogram should not delay biopsy of a clinically suspicious abnormality. [id number] Electronically Signed: Jean-Claude Graham MD at 8:30 EDT ,
== END | disposition home or self-care (01) ==
LOC: OPBI 16:20
PROVIDERS: PCP Family Medicine; Referring Provider Obstetrics & Gynecology; Visit Provider Obstetrics & Gynecology
DX: Z12.31 Encounter for screening mammogram for malignant neoplasm of breast (principal)
CPT/HCPCS: 77063; 77067

== ENCOUNTER → 2024-08-30 | Outpatient (CLI) | payer OTHER, SELFPAY | END | disposition home or self-care (01) | LOC: LABSPEC 15:47 | PROVIDERS: PCP Family Medicine; Referring Provider Obstetrics & Gynecology; Visit Provider Obstetrics & Gynecology | DX: Z12.4 Encounter for screening for malignant neoplasm of cervix (principal) | CPT/HCPCS: 87624; 88175; G0145 ==

== ENCOUNTER → 2025-01-21 | Outpatient (CLI) | payer OTHER, SELFPAY | END | disposition home or self-care (01) | LOC: OPBI 16:19 | PROVIDERS: PCP Family Medicine; Referring Provider Obstetrics & Gynecology; Visit Provider Obstetrics & Gynecology | DX: Z12.31 Encounter for screening mammogram for malignant neoplasm of breast (principal) | CPT/HCPCS: 77063; 77067 ==